=== PATIENT | male | born 1950 | race Caucasian/White ===

== ENCOUNTER 2017-03-05 08:44 | Inpatient (IN) | payer MEDICARE ==
[~2017-03-05] VITALS: Ht 188 cm; Wt 100.0 kg
[2017-03-05] VITALS (8 sets, daily range): BP systolic 125–197; BP diastolic 69–98; PULSE 70–90; RESP 12–20; TEMP 96.5–98.8; O2SAT 95–100
[~2017-03-05 08:44] MED LIST: ALLO300T2 PO; AMIO200T PO; DILT0.05 PO; DOXA1TAB35 PO; FISH100020; HYDR-3801 PO; LEVO.05 PO; LIPI10TA PO; METO100T9 PO
--- NOTE | 2017-03-05 10:39 | PD ---
HPI Chief Complaint: Improvement Engineer Problem Time Seen by Provider: 09:57 Travel History International Travel<30 days: No Contact w/Intl Traveler<30days: No Traveled to known affect area: No History of Present Illness HPI 66 years old male complains of low abdominal pain. Patient has history of end- stage renal disease on peritoneal dialysis for the past 15 years. Patient had infected peritoneal dialysis catheter in November of this year. Patient was seen by Dr. Mascorro and had catheter removal. Patient was put on antibiotic. Patient had catheter replacement subsequently in January of this year. Patient started having low abdominal pain, redness swelling ulcerate drainage lesions on the lateral abdomen for the past 10 days. Patient was seen by personal physician and given IV Fortaz and vancomycin on February 19. Patient was put on oral rifampin since then. Patient started having pussy discharge from the area for the past 2 days. Patient was seen by Dr. Roosevelt Mejia his software product specialist and was advised to the ED for evaluation and admission. Patient denies any headache. Patient denies any chest pain or shortness of breath. Patient states that he has burning pain localized around the lower abdomen area. Patient denies any pain radiation. Patient denies any back pain. Patient denies any fever chills. Patient still making urine. Patient was on temporary hemodialysis for a short time a few months ago. PFSH Past Medical History Arthritis: Yes Blood Disorders: No Cancer: No Cardiovascular Problems: Yes High Cholesterol: Yes Cerebrovascular Accident: Yes Diabetes: No Endocrine: No Genitourinary: No Hypertension: Yes Immune Disorder: No Neurologic: Yes (cva-2012) Psychiatric: No Respiratory: No Immunizations Current: Yes Renal Failure: Yes Thyroid Disease: Yes Past Surgical History Abdominal Surgery: Yes (tenkoff catheter insertion) Cardiac Surgery: Yes (pacer insertion 2013) Cholecystectomy: Yes Pacemaker: Yes (biotronic) Tonsillectomy: Yes Social History Alcohol Use: No Tobacco Use: No Substance Use: No Allergies-Medications (Allergen,Severity, Reaction): Coded Allergies: No Known Allergies (Verified , 03/05/17) Reported Meds & Prescriptions Reported Meds & Active Scripts Active Reported Diltiazem ER 24 HR 180 Mg Forest 180 Mg PO DAILY Doxazosin (Doxazosin Mesylate) 2 Mg Tab 2 Mg PO DAILY Amiodarone (Amiodarone HCl) 200 Mg Tab 200 Mg PO DAILY Synthroid (Levothyroxine Sodium) 50 Mcg Tab 50 Mcg PO DAILY Metoprolol Succinate ER 24 HR (Metoprolol Succinate) 100 Mg Tab 100 Mg PO BID Hydralazine (Hydralazine HCl) 100 Mg Tab 100 Mg PO BID Take with meals Fish Oil 1000 mg ([place]-3 Fatty Acids) 1 Cap Cap BID Lipitor (Atorvastatin Calcium) 10 Mg Tab 10 Mg PO HS Allopurinol 300 Mg Tab 300 Mg PO DAILY Review of Systems General / Constitutional: No: Fever Eyes: No: Visual changes HENT: No: Headaches Cardiovascular: No: Chest Pain or Discomfort Respiratory: No: Shortness of Breath Gastrointestinal: Positive: Abdominal Pain Genitourinary: No: Dysuria Musculoskeletal: No: Pain Skin: No Rash Neurologic: No: Weakness Psychiatric: No: Depression Endocrine: No: Polydipsia Hematologic/Lymphatic: No: Easy Bruising Physical Exam Narrative GENERAL: Well-nourished, well-developed patient. SKIN: Focused skin assessment warm/dry. HEAD: Normocephalic. EYES: No scleral icterus. No injection or drainage. NECK: Supple, trachea midline. No JVD or lymphadenopathy. CARDIOVASCULAR: Regular rate and rhythm without murmurs, gallops, or rubs. RESPIRATORY: Breath sounds equal bilaterally. No accessory muscle use. GASTROINTESTINAL: Abdomen soft, nondistended. Mild tenderness on palpation lower abdomen. Peritoneal catheter in place. MUSCULOSKELETAL: No cyanosis, or edema. BACK: Nontender without obvious deformity. No CVA tenderness. Patient has several ulcer lesions lower abdomen wall area with redness swelling tenderness associate with that. Mild discharge noted. Data Data Last Documented VS Vital Signs Date Time Temp Pulse Resp B/P (MAP) Pulse Ox O2 Delivery O2 Flow Rate FiO2 03/05/17 09:58 16 98 Room Air 03/05/17 08:46 98.8 70 179/81 (113) Orders Orders Electrocardiogram (03/05/17 10:26) Complete Blood Count With Diff (03/05/17 10:26) Comprehensive Metabolic Panel (03/05/17 10:26) Prothrombin Time / Inr (Pt) (03/05/17 10:26) Act Partial Throm Time (Ptt) (03/05/17 10:26) Blood Culture (03/05/17 10:26) Magnesium (Mg) (03/05/17 10:26) Thyroid Stimulating Hormone (03/05/17 10:26) Phosphorus (Po4) (03/05/17 10:26) Chest, Single Ap (03/05/17 10:26) Iv Access Insert/Monitor (03/05/17 10:26) Ecg Monitoring (03/05/17 10:26) Oximetry (03/05/17 10:26) MDM Medical Decision Making Medical Screen Exam Complete: Yes Emergency Medical Condition: Yes Differential Diagnosis Differential diagnosis including cellulitis, infected peritoneal catheter, peritonitis. Narrative Course 66 years old male with infected peritoneal dialysis catheter. Patient has history of end-stage renal disease on dialysis. Jon Sanchez MD Mar 05, 2017 10:39
[2017-03-05] MEDS ORDERED: DILT1TAB4 PO (10:55)
[2017-03-05] MEDS ORDERED: HYDR-3800 PO (10:55)
[2017-03-05 11:21] LABS: AUTOMATED NEUTROPHIL # 5.8 TH/MM3 (1.8-7.7); BASOPHIL # 0.1 TH/MM3 (0-0.2); BASOPHIL % 0.7 % (0.0-2.0); EOSINOPHIL # 0.2 TH/MM3 (0-0.4); EOSINOPHIL % 2.1 % (0.0-4.0); HEMATOCRIT 36.7 % (39.0-51.0); HEMO FLAGS DIFF FINAL; LYMPH % 11.3 % (9.0-44.0); LYMPHOCYTE # 0.9 TH/MM3 (1.0-4.8); MEAN CELL VOLUME 94.6 FL (80.0-100.0); MEAN CORPUSCULAR HEMOGLOBIN 31.8 PG (27.0-34.0); MEAN CORPUSCULAR HGB CONC 33.6 % (32.0-36.0); MONO % 8.8 % (0.0-8.0); NEUT % 77.1 % (16.0-70.0); PLATELET COUNT 171 TH/MM3 (150-450); RED BLOOD COUNT 3.88 MIL/MM3 (4.50-5.90); RED CELL DISTRIBUTION WIDTH 14.8 % (11.6-17.2); WHITE BLOOD COUNT 7.5 TH/MM3 (4.0-11.0)
[2017-03-05 11:28] LABS: APTT (PATIENT) 28.8 SEC (24.3-30.1); INTERNATIONAL NORMALIZED RATIO 1.1 RATIO; PROTHROMBIN TIME - PATIENT 11.9 SEC (9.8-11.6)
--- NOTE | 2017-03-05 11:36 | RADRPT ---
EXAM DATE/TIME: 03/05/2017 10:50 [facility] COMPARISON: No previous studies available for comparison. INDICATIONS : Short of breath. Patient states no chest complaints. Patient states his PEG tube is infected. MEDICAL HISTORY : ESRD,CVA,HTN, left sided weakness. SURGICAL HISTORY : . Peg tube . ENCOUNTER: Initial ACUITY: 1 day PAIN SCORE: 0/10 LOCATION: Bilateral chest FINDINGS: There is a dual-lead pacemaker in place. Lungs are clear. Cardiomediastinal contours are within carine l limits. Bony thorax is intact. CONCLUSION: 1. No acute cardiopulmonary disease. Jc Moyer MD on March 05, 2017 at 11:34 Board Certified Radiologist. This report was verified electronically.
[2017-03-05 11:45] LABS: ANION GAP 9 MEQ/L (5-15); AST (GOT) 95 U/L (15-37); BICARBONATE 26.3 MEQ/L (21.0-32.0); BLOOD UREA NITROGEN 57 MG/DL (7-18); CHLORIDE 105 MEQ/L (98-107); GLOMERULAR FILTRATION RATE 8 ML/MIN (>89); MAGNESIUM 2.5 MG/DL (1.5-2.5); POTASSIUM 3.6 MEQ/L (3.5-5.1); SODIUM (NA) 140 MEQ/L (136-145)
[2017-03-05 11:56] LABS: ALKALINE PHOSPHATASE 127 U/L (45-117); ALT (GPT) 169 U/L (12-78); TOTAL BILIRUBIN ADULT 0.7 MG/DL (0.2-1.0)
[2017-03-05] MEDS ORDERED: SODIUM CHLOR 0.9% 1000 ML INJ 1,000 ML IV PRN (12:24)
[2017-03-05] MEDS ORDERED: ACETAMINOPHEN 325 MG TAB PO PRN ×3 (12:30→14:00)
[2017-03-05] MEDS ORDERED: ALBUMIN HUMAN 25% 25 GM/100 ML BAGP IV PRN (12:30)
[2017-03-05] MEDS ORDERED: GELATIN 12 MM/7 MM FOAM TOP PRN (12:30)
[2017-03-05] MEDS ORDERED: GENTAMICIN SULFATE (DIALYSIS USE ONLY) 20 MG/2 ML VIAL OTHER PRN (12:30)
[2017-03-05] MEDS ORDERED: HEPARIN SODIUM - IV 10,000 UNITS/10 ML VIAL IV FLUSH PRN (12:30)
[2017-03-05] MEDS ORDERED: MANNITOL 12.5 GM/50 ML VIAL IV PRN (12:30)
[2017-03-05] MEDS ORDERED: diphenhydrAMINE HCL 25 MG CAP PO PRN (12:30)
[2017-03-05] MEDS ORDERED: NITROGLYCERIN 0.4 MG SL 25 TABS/BTL SL PRN (12:30)
[2017-03-05] MEDS ORDERED: cloNIDine HCL 0.1 MG TAB PO PRN (12:30)
[2017-03-05] MEDS ORDERED: SODIUM CHLORIDE 0.9% FLUSH 10 ML FLUSH IV FLUSH PRN ×2 (12:30→14:00)
[2017-03-05] MEDS ORDERED: ONDANSETRON HCL 4 MG/2 ML VIAL IV PUSH PRN (12:30)
[2017-03-05] MEDS ORDERED: SODIUM CHLOR 0.9% 1000 ML INJ 1,000 ML OTHER PRN ×2 (13:00)
--- NOTE | 2017-03-05 13:00 | EKG ---
Date Performed: 03/05/2017 Time Performed: 10:46:57 PTAGE: 66 years EKG: ELECTRONIC ATRIAL PACEMAKER ABNORMAL RHYTHM ECG PREVIOUS TRACING : 11/24/2016 08.34 No significant change from previous tracing noted. DOCTOR: Compa Bañuelos Interpretating Date/Time 03/05/2017 12:58:43
[2017-03-05] MEDS ORDERED: VANCOMYCIN INJ 1,000 MG in SODIUM CHLOR 0.9% 250 ML INJ 250 ML IV SCH (13:15)
[2017-03-05] MEDS ORDERED: VANCOMYCIN HCL 1000 MG VIAL ONE (13:28)
[2017-03-05] MEDS ORDERED: MIDAZOLAM HCL 5 MG/5 ML VIAL ONE (13:40)
[2017-03-05] MEDS ORDERED: NALOXONE HCL 0.4 MG/ML AMP IV PUSH PRN (14:00)
[2017-03-05] MEDS ORDERED: ONDANSETRON HCL 4 MG/2 ML VIAL IVP PRN (14:00)
[2017-03-05] MEDS: ceFAZolin 2 GM PREMIX 50 ML IV SCH (14:15)
--- NOTE | 2017-03-05 14:18 | PD.RAD ---
Post Procedure Progress Note Pre Procedure Diagnosis: (1) Dialysis patient Post Procedure Diagnosis: (1) Dialysis patient Procedure Date: Mar 05, 2017 Supervising Radiologist: Judd Lizarraga Estimated blood loss: 5CC Anesthesia: Local, Conscious Sedation Plan of Activity Patient to Unit: Nursing Unit Patient Condition: Fair Additional Comments: Perm Cath placed via the right IJ Catheter in good position OK for use. Full dictated report to follow. See PACS Report for procedural detail/treatment Judd Lizarraga MD Mar 05, 2017 14:18
[2017-03-05] MEDS ORDERED: SODIUM CHLORIDE 0.9% FLUSH 10 ML FLUSH IVF PRN (14:30)
[2017-03-05] MEDS ORDERED: HEPARIN SODIUM - IV 2,000 UNITS/2 ML VIAL IV FLUSH PRN (14:30)
--- NOTE | 2017-03-05 15:25 | RADRPT ---
EXAM DATE/TIME: 03/05/2017 00:00 [facility] COMPARISON: PERM CV CATH PLCMT W US RIGHT, November 24, 2016, 9:53. INDICATIONS : Patient presents with an infected parietoneal dialysis catheter in need of permcath placement for uri lysis. MEDICAL HISTORY : ESRD HTN CVA Left sided weakness SURGICAL HISTORY : Pacemaker Christelle Tonsillectomy Tenkoff catheter placement ENCOUNTER: Subsequent ACUITY: 4-6 months PAIN SCORE: 0/10 LOCATION: N/A FLUORO TIME: 0.9 minutes IMAGE SERIES: SEDATION TIME: 30 minutes ACCESS: Right internal jugular vein SEDATION: 1.) 2 mg midazolam (Versed) IV 2.) 100 mcg fentanyl (Sublimaze) IV Prophylactic antibiotics were administered with appropriate pre-procedure timing. Vancomycin within 2 hours of procedure, Ancef (or alternative) within 1 hour of procedure. DEVICE: 1. 15 Italian dual lumen 23 cm Colmenares II Plus catheter TECH NOTE: No image was stored.CRISTAL TAVAREZ MR#:[id number]/ Exam Dt/Desc: March 05, 2017PERM CV CATH PLCMT W US RIGHT PROCEDURE : 1. Ultrasound-guided venipuncture. 2. PermaCath placement. 3. Conscious sedation with continuous EKG and oximetry monitoring. The risks, benefits and alternatives to the procedure were explained and verbal and written consent w as obtained. The site was prepped in sterile fashion. Full sterile technique was used, including ca p, mask, sterile gloves and gown and a large sterile sheet. Hand hygiene and 2% chlorhexidine and/or betadine/alcohol prep was utilized per protocol for cutaneous antisepsis. Sterile gel and sterile p robe cover were utilized for ultrasound guidance. The skin and subcutaneous tissues were infiltrated with local anesthetic solution. With ultrasound and fluoroscopic guidance a dermatotomy was created over the right internal jugular v ein. A micropuncture set was used to access the targeted vein and serial dilatation was performed to accept the prescribed length catheter. A subcutaneous tunnel was created in a retrograde fashion th e catheter was pulled through the tunnel. The catheter was flushed and assembled and locked with hep daniel. The catheter was sutured in place. Conscious sedation was performed with the prescribed dosages and duration as above in the presence of an independent trained radiology nurse to assist in the monitoring of the patient. EKG and oximetry remained stable throughout the procedure. The patient tolerated the procedure well and there were n o complications. The patient was sent to post anesthesia recovery in stable condition. CONCLUSION: Uncomplicated PermaCath placement as above. Judd Lizarraga MD on March 05, 2017 at 15:24 Board Certified Radiologist. This report was verified electronically.
--- NOTE | 2017-03-05 15:35 | HHI.HP ---
[facility] Physician Abby Winter MD Admission Diagnosis infected peritoneal catheter. History of end-stage renal disease on Diagnoses: (1) Peritoneal dialysis catheter infection Chief Complaint: irritation and drainage at PD site Travel History International Travel<30 Days: No Contact w/Intl Traveler <30 Da: No Traveled to Known Affected Are: No History of Present Illness 66-year-old male with a history of end-stage renal disease on peritoneal dialysis who back in 11/24/16 at his PD catheter removed and replaced by vascular surgery secondary to infection was sent to the ED by his customer marketing manager for evaluation of peritoneal dialysis catheter infection. Patient states, over the past 10 days he's been having abdominal irritation and noticed redness around the PD site He was seen by his PCP will prescribe IV Fortaz and vancomycin on 02/19/17 as well as oral rifampin. However over the past 2 days patient noticed drainage at the PD site along with some erythema. He denies any febrile episode. Review of Systems Except as stated in HPI: all other systems reviewed are Neg Past Family Social History Past Medical History Arthritis: Yes Cardiovascular Problems: Yes High Cholesterol: Yes Cerebrovascular Accident: Yes Hypertension: Yes Immunizations Current: Yes Renal Failure: Yes Thyroid Disease: Yes Past Surgical History Abdominal Surgery: Yes (tenkoff catheter insertion) Cardiac Surgery: Yes (pacer insertion 2013) Cholecystectomy: Yes Pacemaker: Yes (biotronic) Tonsillectomy: Yes Reported Medications Diltiazem ER 24 HR 180 Mg Forest 180 Mg PO DAILY Doxazosin (Doxazosin Mesylate) 2 Mg Tab 2 Mg PO DAILY Amiodarone (Amiodarone HCl) 200 Mg Tab 200 Mg PO DAILY Synthroid (Levothyroxine Sodium) 50 Mcg Tab 50 Mcg PO DAILY Metoprolol Succinate ER 24 HR (Metoprolol Succinate) 100 Mg Tab 100 Mg PO BID Hydralazine (Hydralazine HCl) 100 Mg Tab 100 Mg PO BID Take with meals Fish Oil 1000 mg ([place]-3 Fatty Acids) 1 Cap Cap BID Lipitor (Atorvastatin Calcium) 10 Mg Tab 10 Mg PO HS Allopurinol 300 Mg Tab 300 Mg PO DAILY Allergies: Coded Allergies: No Known Allergies (Verified , 03/05/17) Social History Alcohol Use: No Tobacco Use: No Substance Use: No Physical Exam Vital Signs Vital Signs Date Time Temp Pulse Resp B/P (MAP) Pulse Ox O2 Delivery O2 Flow Rate FiO2 03/05/17 14:52 70 12 196/98 (130) 99 Room Air 03/05/17 11:30 70 15 197/91 (126) 100 Room Air 03/05/17 10:37 96 Room Air 03/05/17 10:36 71 20 192/94 (126) 96 Room Air 03/05/17 10:00 72 16 167/82 (110) 99 Room Air 03/05/17 09:58 16 98 Room Air 03/05/17 08:46 98.8 70 13 179/81 (113) 95 Physical Exam GENERAL: This is a well-nourished, well-developed patient, in no apparent distress. SKIN: No rashes, ecchymoses or lesions. Cool and dry. drainage at PD site surrounding by erythema HEAD: Atraumatic. Normocephalic. No temporal or scalp tenderness. EYES: Pupils equal round and reactive. Extraocular motions intact. No scleral icterus. No injection or drainage. ENT: Nose without bleeding, purulent drainage or septal hematoma. Throat without erythema, tonsillar hypertrophy or exudate. Uvula midline. Airway patent. NECK: Trachea midline. No JVD or lymphadenopathy. Supple, nontender, no meningeal signs. CARDIOVASCULAR: Regular rate and rhythm without murmurs, gallops, or rubs. RESPIRATORY: Clear to auscultation. Breath sounds equal bilaterally. No wheezes , rales, or rhonchi. GASTROINTESTINAL: Abdomen soft, non-tender, nondistended. No hepato-splenomegaly , or palpable masses. No guarding. MUSCULOSKELETAL: Extremities without clubbing, cyanosis, or edema. No joint tenderness, effusion, or edema noted. No calf tenderness. Negative Homans sign bilaterally. NEUROLOGICAL: Awake and alert. Cranial nerves II through XII intact. Motor and sensory grossly within normal limits. Laboratory Laboratory Tests Test 03/05/17 10:25 White Blood Count 7.5 Red Blood Count 3.88 Hemoglobin 12.3 Hematocrit 36.7 Mean Corpuscular Volume 94.6 Mean Corpuscular Hemoglobin 31.8 Mean Corpuscular Hemoglobin Concent 33.6 Red Cell Distribution Width 14.8 Platelet Count 171 Mean Platelet Volume 9.0 Neutrophils (%) (Auto) 77.1 Lymphocytes (%) (Auto) 11.3 Monocytes (%) (Auto) 8.8 Eosinophils (%) (Auto) 2.1 Basophils (%) (Auto) 0.7 Neutrophils # (Auto) 5.8 Lymphocytes # (Auto) 0.9 Monocytes # (Auto) 0.7 Eosinophils # (Auto) 0.2 Basophils # (Auto) 0.1 CBC Comment DIFF FINAL Differential Comment Prothrombin Time 11.9 Prothromb Time International Ratio 1.1 Activated Partial Thromboplast Time 28.8 Blood Urea Nitrogen 57 Creatinine 6.83 Random Glucose 112 Total Protein 6.4 Albumin 2.6 Calcium Level 7.9 Phosphorus Level 4.1 Magnesium Level 2.5 Alkaline Phosphatase 127 Aspartate Amino Transf (AST/SGOT) 95 Alanine Aminotransferase (ALT/SGPT) 169 Total Bilirubin 0.7 Sodium Level 140 Potassium Level 3.6 Chloride Level 105 Carbon Dioxide Level 26.3 Anion Gap 9 Estimat Glomerular Filtration Rate 8 Thyroid Stimulating Hormone 3rd Gen 5.020 Date/Time Source Procedure Growth Status 03/05/17 10:50 Blood Peripheral Aerobic Blood Culture Pending Received 03/05/17 10:50 Blood Peripheral Anaerobic Blood Culture Pending Received 03/05/17 12:40 Wound Abdomen Acid Fast Stain Pending Received 03/05/17 12:40 Wound Abdomen Mycobacterial Culture Pending Received Result Diagram: 03/05/17 1025 03/05/17 1025 Imaging Last Impressions Chest X-Ray 03/05/17 1026 Signed Impressions: Service Date/Time: Sunday, March 05, 2017 10:50 - CONCLUSION: 1. No acute cardiopulmonary disease. Jc Moyer MD Catheter Placement X-Ray 03/05/17 0000 Signed Impressions: Service Date/Time: Sunday, March 05, 2017 00:00 - CONCLUSION: Uncomplicated PermaCath placement as above. MD Mirna Guadarrama VTE Risk Assessment Zenai VTE Risk Assessment: Mod/High Risk (score >= 2) Caprini Risk Assessment Model Point Value = 1 Point Value = 2 Point Value = 3 Point Value = 5 Age 41-60 Minor surgery BMI > 25 kg/m2 Swollen legs Varicose veins or History of unexplained or recurrent spontaneous Oral contraceptives or hormone replacement Sepsis (< 1 month) Serious lung disease, including pneumonia (< 1 month) Abnormal pulmonary function Acute myocardial infarction Congestive heart failure (< 1 month) History of inflammatory bowel disease Medical patient at bed rest Age 61-74 Arthroscopic surgery Major open surgery (> 45 min) Laparoscopic surgery (> 45 min) Malignancy Confined to bed (> 72 hours) Immobilizing plaster cast Central venous access Age >= 75 History of VTE Family history of VTE Factor V Leiden Prothrombin [id number] Lupus anticoagulant Anticardiolipin antibodies Elevated serum homocysteine Heparin-induced thrombocytopenia Other congenital or acquired thrombophilia Stroke (< 1 month) Elective arthroplasty Hip, pelvis, or leg fracture Acute spinal cord injury (< 1 month) Prophylaxis Regimen Total Risk Factor Score Risk Level Prophylaxis Regimen 0-1 Low Early ambulation 2 Moderate Order ONE of the following: *Sequential Compression Device (SCD) *Heparin 5000 units SQ BID 3-4 Higher Order ONE of the following medications: *Heparin 5000 units SQ TID *Enoxaparin/Lovenox 40 mg SQ daily (WT < 150 kg, CrCl > 30 mL/min) *Enoxaparin/Lovenox 30 mg SQ daily (WT < 150 kg, CrCl > 10-29 mL/min) *Enoxaparin/Lovenox 30 mg SQ BID (WT < 150 kg, CrCl > 30 mL/min) AND/OR *Sequential Compression Device (SCD) 5 or more Highest Order ONE of the following medications: *Heparin 5000 units SQ TID (Preferred with Epidurals) *Enoxaparin/Lovenox 40 mg SQ daily (WT < 150 kg, CrCl > 30 mL/min) *Enoxaparin/Lovenox 30 mg SQ daily (WT < 150 kg, CrCl > 10-29 mL/min) *Enoxaparin/Lovenox 30 mg SQ BID (WT < 150 kg, CrCl > 30 mL/min) AND *Sequential Compression Device (SCD) Assessment and Plan Problem List: (1) Peritoneal dialysis catheter infection ICD Code: T85.71XA - Infection and inflammatory reaction due to peritoneal dialysis catheter, initial encounter Assessment and Plan 66-year-old man with Peritoneal dialysis catheter infection Recurrent aspiration with prior infected PD catheter which was replaced 11/24 Interventional radiology consulted and patient is status post placement of banneracat Nephrology consultation pending Antibiotic per Nephrology pending culture reports End stage renal disease on dialysis Management per nephrology Hypertension Labile BP Resume outpatient medications Start hydralazine when necessary History of CAD, hypertension, hyperlipidemia and other chronic medical conditions Resume outpatient medications Code Status Full code Discussed Condition With Patient, ED physician Physician Certification 2 Midnight Certification Type: Continued Stay Order for Inpatient Services The services are ordered in accordance with Medicare regulations or non- Medicare payer requirements, as applicable. In the case of services not specified as inpatient-only, they are appropriately provided as inpatient services in accordance with the 2-midnight benchmark. Estimated LOS (days): 2 days is the estimated time the patient will need to remain in the hospital, assuming treatment plan goals are met and no additional complications. Post-Hospital Plan: Not yet determined Mauricio Ahn MD Mar 05, 2017 15:34
[2017-03-05] MEDS ORDERED: hydrALAZINE HCL 25 MG TAB PO PRN (15:45)
[2017-03-05] MEDS ORDERED: IMIPENEM/CILASTATIN INJ 500 MG VIAL IV ONE (16:15)
--- NOTE | 2017-03-05 16:32 | PD.CONS ---
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 He had a infection in the past 6 months that required PD catheter removal and replacement. He presents with drainage at exit site with what looks like an abscess on the lower abdomen. He was referred for treatment. He was being treated with IP vancomycin and Fortaz, and recently started oral rifampin. today he is afebrile, no leukocytosis. The culture from the PD clinic shows + AFB. He has no acute electrolyte disorders. We had a PermCath placed today in anticipation of starting hemodialysis. His is present, he is a full code. (Jeaneth Roth) Review of Systems Constitutional: COMPLAINS OF: Fatigue Integumentary: COMPLAINS OF: Abnormal pigmentation (Jeaneth Roth) Past Family Social History Allergies: Coded Allergies: No Known Allergies (Verified , 03/05/17) Past Medical History ESRD 2' to IgA nephropathy HTN CVA A fib anemia metabolic bone disorder gout Past Surgical History PD catheter and removal PD catheter replacement pacemaker Reported Medications Diltiazem ER 24 HR 180 Mg [place] 180 Mg PO DAILY Doxazosin (Doxazosin Mesylate) 2 Mg Tab 2 Mg PO DAILY Amiodarone (Amiodarone HCl) 200 Mg Tab 200 Mg PO DAILY Synthroid (Levothyroxine Sodium) 50 Mcg Tab 50 Mcg PO DAILY Metoprolol Succinate ER 24 HR (Metoprolol Succinate) 100 Mg Tab 100 Mg PO BID Hydralazine (Hydralazine HCl) 100 Mg Tab 100 Mg PO BID Take with meals Fish Oil 1000 mg ([place]-3 Fatty Acids) 1 Cap Cap BID Lipitor (Atorvastatin Calcium) 10 Mg Tab 10 Mg PO HS Allopurinol 300 Mg Tab 300 Mg PO DAILY Active Ordered Medications Current Medications Medications (Trade) Dose Ordered Sig/Xander Route Start Time Stop Time Status Last Admin Sodium Chloride 1,000 ml @ 0 mls/hr Q0M PRN OTHER 03/05/17 13:00 (Heparin Inj) 8,000 units UNSCH PRN IV FLUSH 03/05/17 12:30 Sodium Chloride 1,000 ml @ 200 mls/hr Q5H PRN IV 03/05/17 12:24 Sodium Chloride 1,000 ml @ 0 mls/hr Q0M PRN OTHER 03/05/17 13:00 (Mannitol Inj) 12.5 gm UNSCH PRN IV 03/05/17 12:30 (Albumin 25% Inj) 25 gm UNSCH PRN IV 03/05/17 12:30 (NS Flush) 5 ml UNSCH PRN IV FLUSH 03/05/17 12:30 (Heparin Inj) UNSCH PRN .XX 03/05/17 12:30 (Gentamicin (Dialysis) Inj) 20 mg UNSCH PRN OTHER 03/05/17 12:30 (Zofran Inj) 4 mg UNSCH PRN IV PUSH 03/05/17 12:30 (Tylenol) 650 mg UNSCH PRN PO 03/05/17 12:30 (Benadryl) 25 mg UNSCH PRN PO 03/05/17 12:30 (Nitrostat Sl) 0.4 mg UNSCH PRN SL 03/05/17 12:30 (Catapres) 0.1 mg UNSCH PRN PO 03/05/17 12:30 03/05/17 15:08 (Gelfoam 12 Mm/7 Mm Top) 1 foam UNSCH PRN TOP 03/05/17 12:30 Vancomycin HCl 1000 mg/Sodium Chloride 250 ml @ 250 mls/hr CLOTH SHRINKING TESTER IV 03/05/17 13:15 03/08/17 13:14 Cefazolin Sodium/ Dextrose 50 ml @ 100 mls/hr CLOTH SHRINKING TESTER IV 03/05/17 13:15 03/08/17 13:14 03/05/17 14:15 (NS Flush) 2 ml UNSCH PRN IV FLUSH 03/05/17 14:00 (NS Flush) 2 ml BID IV FLUSH 03/05/17 21:00 (Tylenol) 650 mg Q4H PRN PO 03/05/17 14:00 (Zofran Inj) 4 mg Q6H PRN IVP 03/05/17 14:00 (Restoril) 15 mg HS PRN PO 03/05/17 14:00 (Tylenol) 650 mg Q6H PRN PO 03/05/17 14:00 (Narcan Inj) 0.4 mg UNSCH PRN IV PUSH 03/05/17 14:00 (NS Flush) UNSCH PRN IVF 03/05/17 14:30 (Heparin Inj) UNSCH PRN IV FLUSH 03/05/17 14:30 (Zyloprim) 300 mg DAILY PO 03/06/17 09:00 UNV (Lipitor) 10 mg HS PO 03/05/17 21:00 UNV (Cardizem Cd) 240 mg DAILY PO 03/06/17 09:00 UNV (Cardura) 2 mg DAILY PO 03/06/17 09:00 UNV (Apresoline) 50 mg BID PO 03/05/17 21:00 UNV (Synthroid) 50 mcg DAILY PO 03/06/17 09:00 UNV Non-Formulary Medication 100 mg BID PO 03/05/17 21:00 UNV (Apresoline) 25 mg Q8HR PRN PO 03/05/17 15:45 UNV Family History No hx of renal impairment Social History No hx of smoking Ambulatory Full code (Jeaneth Roth) Physical Exam Vital Signs Vital Signs Date Time Temp Pulse Resp B/P (MAP) Pulse Ox O2 Delivery O2 Flow Rate FiO2 03/05/17 15:20 03/05/17 14:52 70 12 196/98 (130) 99 Room Air 03/05/17 11:30 70 15 197/91 (126) 100 Room Air 03/05/17 10:37 96 Room Air 03/05/17 10:36 71 20 192/94 (126) 96 Room Air 03/05/17 10:00 72 16 167/82 (110) 99 Room Air 03/05/17 09:58 16 98 Room Air 03/05/17 08:46 98.8 70 13 179/81 (113) 95 Physical Exam This is an elderly male awake,alert, oriented x 3 lungs clear S1/S2, irreg irreg, no murmurs; pacer left chest abdomen round; right side at PD exit site yellow thick drainage lower abdomen approximately 3 inch area of inflammation, raised, appears to have abscess tunneled under skin no edema to extremities PermCath right chest Laboratory Laboratory Tests Test 03/05/17 10:25 White Blood Count 7.5 Red Blood Count 3.88 Hemoglobin 12.3 Hematocrit 36.7 Mean Corpuscular Volume 94.6 Mean Corpuscular Hemoglobin 31.8 Mean Corpuscular Hemoglobin Concent 33.6 Red Cell Distribution Width 14.8 Platelet Count 171 Mean Platelet Volume 9.0 Neutrophils (%) (Auto) 77.1 Lymphocytes (%) (Auto) 11.3 Monocytes (%) (Auto) 8.8 Eosinophils (%) (Auto) 2.1 Basophils (%) (Auto) 0.7 Neutrophils # (Auto) 5.8 Lymphocytes # (Auto) 0.9 Monocytes # (Auto) 0.7 Eosinophils # (Auto) 0.2 Basophils # (Auto) 0.1 CBC Comment DIFF FINAL Differential Comment Prothrombin Time 11.9 Prothromb Time International Ratio 1.1 Activated Partial Thromboplast Time 28.8 Blood Urea Nitrogen 57 Creatinine 6.83 Random Glucose 112 Total Protein 6.4 Albumin 2.6 Calcium Level 7.9 Phosphorus Level 4.1 Magnesium Level 2.5 Alkaline Phosphatase 127 Aspartate Amino Transf (AST/SGOT) 95 Alanine Aminotransferase (ALT/SGPT) 169 Total Bilirubin 0.7 Sodium Level 140 Potassium Level 3.6 Chloride Level 105 Carbon Dioxide Level 26.3 Anion Gap 9 Estimat Glomerular Filtration Rate 8 Thyroid Stimulating Hormone 3rd Gen 5.020 Date/Time Source Procedure Growth Status 03/05/17 10:50 Blood Peripheral Aerobic Blood Culture Pending Received 03/05/17 10:50 Blood Peripheral Anaerobic Blood Culture Pending Received 03/05/17 12:40 Wound Abdomen Acid Fast Stain Pending Received 03/05/17 12:40 Wound Abdomen Mycobacterial Culture Pending Received (Jeaneth Roth) Result Diagram: 03/05/17 1025 03/05/17 1025 Imaging Last Impressions Chest X-Ray 03/05/17 1026 Signed Impressions: Service Date/Time: Sunday, March 05, 2017 10:50 - CONCLUSION: 1. No acute cardiopulmonary disease. Jc Moyer MD Catheter Placement X-Ray 03/05/17 0000 Signed Impressions: Service Date/Time: Sunday, March 05, 2017 00:00 - CONCLUSION: Uncomplicated PermaCath placement as above. Judd Lizarraga MD (Jeaneth Roth) Assessment and Plan Problem List: (1) Peritoneal dialysis catheter infection ICD Codes: T85.71XA - Infection and inflammatory reaction due to peritoneal dialysis catheter, initial encounter Plan: We have consulted surgery for PD catheter removal also have consulted ID for their expert opinion he was given Ancef and vancomycin ordered Levaquin Q48h with one dose of Primaxin wound culture has been sent (2) ESRD (end stage renal disease) on dialysis ICD Codes: N18.6 - End stage renal disease; Z99.2 - Dependence on renal dialysis Plan: Due to infection we will have to convert to HD permcath placed 03/05 Start TTS HD, no indication for dialysis today intermittently follow electrolytes IVF not required avoid gadolinium; renally does antibiotics if appropriate (3) HTN (hypertension) ICD Codes: I10 - Essential (primary) hypertension Plan: monitor blood pressure resume home medications (4) Bone metabolism disorder ICD Codes: E88.9 - Metabolic disorder, unspecified; M90.80 - Osteopathy in diseases classified elsewhere, unspecified site Plan: check phosphorus level in AM start binders if needed (Jeaneth Roth) Problem List: (1) Peritoneal dialysis catheter infection ICD Codes: T85.71XA - Infection and inflammatory reaction due to peritoneal dialysis catheter, initial encounter Plan: We have consulted surgery for PD catheter removal also have consulted ID for their expert opinion he was given Ancef and vancomycin ordered Levaquin Q48h with one dose of Primaxin wound culture has been sent (2) ESRD (end stage renal disease) on dialysis ICD Codes: N18.6 - End stage renal disease; Z99.2 - Dependence on renal dialysis Plan: Due to infection we will have to convert to HD permcath placed 03/05 Start TTS HD, no indication for dialysis today intermittently follow electrolytes IVF not required avoid gadolinium; renally does antibiotics if appropriate (3) HTN (hypertension) ICD Codes: I10 - Essential (primary) hypertension Plan: monitor blood pressure resume home medications (4) Bone metabolism disorder ICD Codes: E88.9 - Metabolic disorder, unspecified; M90.80 - Osteopathy in diseases classified elsewhere, unspecified site Plan: check phosphorus level in AM start binders if needed Assessment and Plan patient was seen and examined. Agree with above assessment and plan. I personally called ID and surgery (Dr. Mayer and Dr. Pop). Dr. Pop will inform Dr. Bonilla. Dr. Mayer recommended Levaquin and Primaxin. Apparently, Primaxin will have to be ordered by ID. The patient appears to have tunnel infection, and an abdominal wall abscess. Plan is to have PD catheter removed, treat infection, drain the abscess. He will be on HD at least temporarily. (Deangelo Dsouza MD) Jeaneth Roth Mar 05, 2017 16:32 Deangelo Dsouza MD Mar 06, 2017 07:07
[2017-03-05] MEDS: LEVOFLOXACIN 500 MG PREMIX INJ 100 ML IV SCH (18:30)
[2017-03-05] MEDS: hydrALAZINE HCL 50 MG TAB PO SCH (20:39)
[2017-03-05] MEDS: SODIUM CHLORIDE 0.9% FLUSH 10 ML FLUSH IV FLUSH SCH (20:39)
[2017-03-05] MEDS: METOPROLOL SUCCINATE 50 MG EXTENDED RELEASE TAB PO SCH (20:39)
[2017-03-05] MEDS: ATORVASTATIN 10 MG TAB PO SCH (20:39)
[2017-03-05] MEDS ORDERED: NON-FORMULARY DRUG (Metoprolol Succinate ER 24 HR 100 MG) PO SCH (21:00)
--- NOTE | 2017-03-05 21:10 | PD.PN.STU ---
Subjective Remarks 66 yo male with end stage renal disease consulted for infected peritoneal dialysis catheter. 10 days previous he began to notice, as he describes, a "boil " developing below his insertion site of his catheter. He notes it was just like the last PD catheter that was infected years back. This PD was placed in january after a subsequent infection of his previous PD that was placed in 2010. He presented to Dr. Mejia at the dialysis clinic and was admitted. He denies fever, abdominal pain, nausea/vomiting. He has normal bowel and bladder habits. Past surgical hx: left sided PD catheter placement 2010 and removal (unknown date) right sided PD catheter placement jan 2017 cholecystectomy (approximate time in 2001) Pacemaker placement Objective Vitals Vital Signs Date Time Temp Pulse Resp B/P (MAP) Pulse Ox O2 Delivery O2 Flow Rate FiO2 03/05/17 16:00 97.8 90 18 125/69 (87) 95 03/05/17 15:20 03/05/17 14:52 70 12 196/98 (130) 99 Room Air 03/05/17 11:30 70 15 197/91 (126) 100 Room Air 03/05/17 10:37 96 Room Air 03/05/17 10:36 71 20 192/94 (126) 96 Room Air 03/05/17 10:00 72 16 167/82 (110) 99 Room Air 03/05/17 09:58 16 98 Room Air 03/05/17 08:46 98.8 70 13 179/81 (113) 95 I/O 03/04/17 03/04/17 03/04/17 03/05/17 03/05/17 03/05/17 07:00 15:00 23:00 07:00 15:00 23:00 Intake Total 50 ml 480 ml Balance 50 ml 480 ml Intake Oral 480 ml IV Total 50 ml GENERAL: Well-nourished, well-developed patient.very pleasant and able to communicate well. SKIN: Warm and dry. HEAD: Normocephalic. EYES: No scleral icterus. No injection or drainage. CARDIOVASCULAR: Regular rate and rhythm without murmurs, gallops, or rubs. RESPIRATORY: Breath sounds equal bilaterally. No accessory muscle use. GASTROINTESTINAL: Abdomen soft, nondistended; approx 3 cm pus draining and erythematous open wound with raised edges below the insertion site of PD catheter, insertion site of catheter is erythematous and painful to light touch. EXTREMITIES: No cyanosis, or edema. NEUROLOGICAL: Awake, alert. left sided weakness face and extremities. Result Diagram: 03/05/17 1025 03/05/17 1025 Imaging Last Impressions Chest X-Ray 03/05/17 1026 Signed Impressions: Service Date/Time: Sunday, March 05, 2017 10:50 - CONCLUSION: 1. No acute cardiopulmonary disease. Jc Moyer MD Catheter Placement X-Ray 03/05/17 0000 Signed Impressions: Service Date/Time: Sunday, March 05, 2017 00:00 - CONCLUSION: Uncomplicated PermaCath placement as above. Judd Lizarraga MD A/P Assessment and Plan 1. peritoneal dialysis catheter infection - to be removed surgically; patient last meal approximately 16:30 03/05/17 hold at least 8 hrs with plan for surgery 03/06 morning. given Ancef and vancomycin Levaquin Q48h with one dose of Primaxin wound culture has been sent 2. End stage renal disease - per nephrology care 3. hypertension - per hospitalist care Marguerite Sidhu M3 Mar 05, 2017 21:10
--- NOTE | 2017-03-05 21:59 | MB ---
cc: STANTON MORLEY MD DATE OF CONSULTATION 03/05/2017 REASON FOR CONSULTATION Infected peritoneal dialysis catheter. HISTORY OF PRESENT ILLNESS The patient is a 66-year-old male with a history of end-stage renal disease on peritoneal dialysis who had his peritoneal dialysis catheter removed and replaced on November 24 of this year. The patient had abdominal irritation and increased pain and redness around the peritoneal dialysis site. The patient was seen by his primary care physician who prescribed IV Fortaz and vancomycin as well as oral Rifampin. He has noticed some drainage at the peritoneal dialysis site along with some erythema. The patient has had a hemodialysis catheter placed by radiology today. PAST MEDICAL HISTORY 1. Arthritis, 2. Hypercholesterolemia, 3. Coronary artery disease, 4. Hypertension, 5. End-stage renal disease, 6. Hypothyroidism, 7. Pacemaker insertion 8. CVA with residual weakness. PAST SURGICAL HISTORY 1. Pacemaker placement, 2. Cholecystectomy, 3. Tonsillectomy. MEDICATIONS 1. Diltiazem ER 180 mg p.o. daily. 2. Doxazosin 2 mg p.o. daily. 3. Amiodarone 200 mg p.o. q. day. 4. Synthroid 50 mcg q. day. 5. Metoprolol 100 mg b.i.d. 6. Hydralazine 100 mg b.i.d. 7. Fish oil daily. 8. Lipitor 10 mg p.o. q.h.s. 9. Allopurinol 300 mg p.o. q. day. ALLERGIES No known allergies. SOCIAL HISTORY He does not drink, smoke or use other substances. The patient's renal disease is due to IgA nephropathy. PHYSICAL EXAMINATION GENERAL: A male in no acute distress. VITAL SIGNS: BP 125/69, pulse 90, respirations 18, temperature 97.8. HEENT: Sclerae anicteric. Pupils are reactive. NECK: Supple. CHEST: Clear to auscultation. CARDIAC: Regular rate and rhythm. There is a pacemaker on the left side of his chest with a well-healed pocket. ABDOMEN: Soft with tenderness located over the peritoneal insertion site and the tunnel exit site. There is purulent material at the exit site. Pulses are present. NEUROLOGIC: The patient has weakness on the left side in the arm and leg. LABORATORY DATA WBCs of 7.5, platelets are 171,000. Coags - INR is 1.1. Chemistries - BUN and creatinine elevated at 57 and 6.8, potassium is 3.6, sodium 140, magnesium 2.5, calcium 7.9, alkaline phosphatase is elevated at 127, ALT 169, AST 95, total bilirubin normal at 0.7. TSH is elevated at 5.02. ASSESSMENT Infected peritoneal dialysis catheter. The patient has been changed over to hemodialysis. He is just eaten and as he is not septic, myself or one of my partners will remove the catheter tomorrow. He is scheduled for surgery at the end of the morning. I have discussed risks of the procedure with the patient and his including but not limited to bleeding, infection, need for reoperation. He will likely have the wound left open and have a VAC dressing applied. MD DIANA Garg/ /9:06 PM /9:30 PM
[2017-03-06] MEDS: LEVOTHYROXINE SODIUM 50 MCG TAB PO SCH (05:28)
[2017-03-06 05:40] LABS: AUTOMATED NEUTROPHIL # 5.3 TH/MM3 (1.8-7.7); BASOPHIL # 0.1 TH/MM3 (0-0.2); BASOPHIL % 0.9 % (0.0-2.0); EOSINOPHIL # 0.2 TH/MM3 (0-0.4); EOSINOPHIL % 2.5 % (0.0-4.0); HEMATOCRIT 33.7 % (39.0-51.0); HEMO FLAGS DIFF FINAL; LYMPH % 13.4 % (9.0-44.0); MEAN CORPUSCULAR HEMOGLOBIN 31.8 PG (27.0-34.0); MEAN CORPUSCULAR HGB CONC 33.8 % (32.0-36.0); MONO % 10.1 % (0.0-8.0); NEUT % 73.1 % (16.0-70.0); PLATELET COUNT 160 TH/MM3 (150-450); RED BLOOD COUNT 3.59 MIL/MM3 (4.50-5.90); RED CELL DISTRIBUTION WIDTH 15.1 % (11.6-17.2); WHITE BLOOD COUNT 7.3 TH/MM3 (4.0-11.0)
[2017-03-06 05:56] LABS: ANION GAP 11 MEQ/L (5-15); AST (GOT) 85 U/L (15-37); BICARBONATE 23.7 MEQ/L (21.0-32.0); BLOOD UREA NITROGEN 57 MG/DL (7-18); CHLORIDE 107 MEQ/L (98-107); GLOMERULAR FILTRATION RATE 8 ML/MIN (>89); POTASSIUM 4.1 MEQ/L (3.5-5.1); SODIUM (NA) 142 MEQ/L (136-145)
[2017-03-06 05:59] LABS: ALKALINE PHOSPHATASE 97 U/L (45-117); ALT (GPT) 137 U/L (12-78); TOTAL BILIRUBIN ADULT 0.5 MG/DL (0.2-1.0)
[2017-03-06] MEDS ORDERED: LACTATED RINGER'S 1000 ML IV PRN (06:00)
[2017-03-06 08:00] VITALS: BP 184/92; PULSE 70; RESP 18; TEMP 95.9; O2SAT 96
[2017-03-06] MEDS: DILTIAZEM-CD 240 MG CAP ER PO SCH (08:44)
[2017-03-06] MEDS: DOXAZOSIN MESYLATE 2 MG TAB PO SCH (08:44)
[2017-03-06] MEDS: METOPROLOL SUCCINATE 50 MG EXTENDED RELEASE TAB PO SCH ×2 (08:44→19:38)
[2017-03-06] MEDS: hydrALAZINE HCL 50 MG TAB PO SCH ×2 (08:44→19:37)
[2017-03-06] MEDS ORDERED: ALLOPURINOL 300 MG TAB PO SCH (09:00)
[2017-03-06] MEDS: SODIUM CHLORIDE 0.9% FLUSH 10 ML FLUSH IV FLUSH SCH ×2 (09:16→19:38)
--- NOTE | 2017-03-06 11:07 | HHI.NPPN ---
Subjective Additional Remarks No acute complaints, seen on dialysis today. Plan for PD catheter removal after dialysis. Objective Data Data Vital Signs Date Time Temp Pulse Resp B/P (MAP) Pulse Ox O2 Delivery O2 Flow Rate FiO2 03/06/17 08:00 95.9 70 18 184/92 (122) 96 03/05/17 20:00 96.5 74 17 169/92 (117) 98 03/05/17 16:00 97.8 90 18 125/69 (87) 95 03/05/17 15:20 03/05/17 14:52 70 12 196/98 (130) 99 Room Air 03/05/17 11:30 70 15 197/91 (126) 100 Room Air -: 03/06/17 0440 03/06/17 0440 Microbiology 03/05/17 Acid Fast Stain, Received Pending 03/05/17 Mycobacterial Culture, Received Pending 03/05/17 Gram Stain - Final, Resulted 03/05/17 Wound Culture, Resulted Pending Physical Exam General Appearance: Well Developed, Well Nourished, No Acute Distress Eyes Eye Exam: Pupils Equal Throat Throat Exam: Oral Mucosa [place] & Moist Neck Neck Exam: Neck Supple Pulmonary Resp Exam: Clear Bilaterally Cardiology CV Exam: Regular, Normal Sinus Rhythm Gastrointestinal/Abdomen GI Exam: Soft, Non-Tender, Bowel Sounds Present Integumentary Skin Exam: Dry, Intact Extremeties Extremities Exam: No Edema Neurologic Neuro Exam: Alert, Awake, Oriented Assessment/Plan Problem List: (1) Peritoneal dialysis catheter infection ICD Codes: T85.71XA - Infection and inflammatory reaction due to peritoneal dialysis catheter, initial encounter Plan: Plan for PD catheter removal today. ID consulted - given ancef and vancomycin now. Levaquin Q48h with one dose of Primaxin Persistent +AFB wound culture has been sent (2) ESRD (end stage renal disease) on dialysis ICD Codes: N18.6 - End stage renal disease; Z99.2 - Dependence on renal dialysis Plan: Tunneled HD catheter placed yesterday. Seen on HD today, continue HD TTS avoid gadolinium; renally does antibiotics if appropriate Will need arrangements for outpatient HD. May evaluate for AV access inpatient or outpatient - unclear if he would be a candidate for retrying PD again. (3) HTN (hypertension) ICD Codes: I10 - Essential (primary) hypertension Plan: BP slightly elevated, HD today. Continue to monitor. (4) Bone metabolism disorder ICD Codes: E88.9 - Metabolic disorder, unspecified; M90.80 - Osteopathy in diseases classified elsewhere, unspecified site Plan: check phosphorus level in AM start binders if needed (5) Atrial fibrillation ICD Codes: I48.91 - Unspecified atrial fibrillation Plan: Recently stopped Amiodarone and increased on Cardizem with Dr. Cotto outpatient. HR 70s, continue to monitor. Judd Mejia MD Mar 06, 2017 11:06
[2017-03-06] MEDS: HEPARIN SODIUM - IV 10,000 UNITS/10 ML VIAL PRN (11:19)
--- NOTE | 2017-03-06 11:55 | PD.ID.CON ---
History of Present Illness Service ID Consult Requested By Dr Dsouza Reason for Consult nfected PD catheter, growing AFB Primary Care Physician Abby Winter MD Diagnoses: History of Present Illness 68 yo male wioth ESRD, PD cath had a infection in the past 6 months that required PD catheter removal and replacement He apparently once agin developped drainage at exit site He was started on treatment with IP vancomycin and Fortaz, and recently started oral rifampin. The culture from the PD clinic shows + AFB. He has no acute electrolyte disorders. Yesteraday he had a PermCath placed today and started on hemodialysis which he had today Clx done 10 days ago and grew AFB witnin 6 mos denies fever, chills, no abd pain For removal PD cath Review of Systems Except as stated in HPI: all other systems reviewed are Neg Past Family Social History Allergies: Coded Allergies: No Known Allergies (Verified , 03/05/17) Past Medical History ESRD 2' to IgA nephropathy HTN CVA A fib anemia metabolic bone disorder gout Past Surgical History PD catheter placement and removal PD catheter replacement pacemaker Active Ordered Medications Medications where reviewed in EMR Antibiotics Include: levaquine vancomycin Family History reviewed Non contributory Social History No hx of smoking, ETOH or drugs Full code Physical Exam Vital Signs Vital Signs Date Time Temp Pulse Resp B/P (MAP) Pulse Ox O2 Delivery O2 Flow Rate FiO2 03/06/17 08:00 95.9 70 18 184/92 (122) 96 03/05/17 20:00 96.5 74 17 169/92 (117) 98 03/05/17 16:00 97.8 90 18 125/69 (87) 95 03/05/17 15:20 03/05/17 14:52 70 12 196/98 (130) 99 Room Air Physical Exam CONSTITUTIONAL/GENERAL: This is an adequately nourished patient, in no apparent distress. TUBES/LINES/DRAINS: R chest Permacath in place - site OK SKIN: No jaundice, rashes, or lesions. Skin temperature appropriate. Not diaphoretic. HEAD: Atraumatic. Normocephalic. EYES: Pupils equal and round and reactive. Extraocular motions intact. No scleral icterus. No injection or drainage. Fundi not examined. ENT: Hearing grossly normal. Nose without bleeding or purulent drainage. Oral mucosae without visible erythema, exudates, masses, or lesions. NECK: Trachea midline. Supple, nontender. No palpable thyroid enlargement or nodularity. CARDIOVASCULAR: Regular rate and rhythm without murmurs, gallops, or rubs. No JVD. Peripheral pulses symmetric. RESPIRATORY/CHEST: Symmetric, unlabored respirations. Clear to auscultation. Breath sounds equal bilaterally. No wheezes, rales, or rhonchi. GASTROINTESTINAL: Abdomen soft, non-tender, nondistended. No hepato-splenomegaly , or palpable masses. No guarding. Bowel sounds present. RLQ PD cath in place - site OK Erythematous slightly draining mildly tender lump just below it Previous L PD cath site - healed MUSCULOSKELETAL: Extremities without clubbing, cyanosis, or edema. No joint tenderness or effusion noted. No calf tenderness. No mottling or clubbing. LYMPHATICS: No palpable cervical or supraclavicular adenopathy. NEUROLOGICAL: Awake and alert. Motor RUE/RLE normal limits. L side hemiplagia Follows commands. Slightly disarthric. L facial droop.. PSYCHIATRIC: No obvious anxiety/depression. no apparent hallucinations or other psychotic thought process. Laboratory Laboratory Tests Test 03/06/17 04:40 03/06/17 09:30 White Blood Count 7.3 Red Blood Count 3.59 Hemoglobin 11.4 Hematocrit 33.7 Mean Corpuscular Volume 94.0 Mean Corpuscular Hemoglobin 31.8 Mean Corpuscular Hemoglobin Concent 33.8 Red Cell Distribution Width 15.1 Platelet Count 160 Mean Platelet Volume 8.6 Neutrophils (%) (Auto) 73.1 Lymphocytes (%) (Auto) 13.4 Monocytes (%) (Auto) 10.1 Eosinophils (%) (Auto) 2.5 Basophils (%) (Auto) 0.9 Neutrophils # (Auto) 5.3 Lymphocytes # (Auto) 1.0 Monocytes # (Auto) 0.7 Eosinophils # (Auto) 0.2 Basophils # (Auto) 0.1 CBC Comment DIFF FINAL Differential Comment Blood Urea Nitrogen 57 Creatinine 6.71 Random Glucose 101 Total Protein 5.5 Albumin 2.2 Calcium Level 7.8 Alkaline Phosphatase 97 Aspartate Amino Transf (AST/SGOT) 85 Alanine Aminotransferase (ALT/SGPT) 137 Total Bilirubin 0.5 Sodium Level 142 Potassium Level 4.1 Chloride Level 107 Carbon Dioxide Level 23.7 Anion Gap 11 Estimat Glomerular Filtration Rate 8 Date/Time Source Procedure Growth Status 9/29/17 10:50 Blood Peripheral Aerobic Blood Culture - Preliminary NO GROWTH IN 1 DAY Resulted 03/05/17 10:50 Blood Peripheral Anaerobic Blood Culture - Preliminary NO GROWTH IN 1 DAY Resulted 03/05/17 12:40 Wound Abdomen Acid Fast Stain Pending Received 03/05/17 12:40 Wound Abdomen Mycobacterial Culture Pending Received Result Diagram: 03/06/17 0440 03/06/17 0440 Imaging Last Impressions Chest X-Ray 03/05/17 1026 Signed Impressions: Service Date/Time: Sunday, March 05, 2017 10:50 - CONCLUSION: 1. No acute cardiopulmonary disease. Jc Moyer MD Catheter Placement X-Ray 03/05/17 0000 Signed Impressions: Service Date/Time: Sunday, March 05, 2017 00:00 - CONCLUSION: Uncomplicated PermaCath placement as above. Judd Lizarraga MD Assessment and Plan Assessment and Plan PD cath AFB infx, rapid grower Primaxn, LevVon mariaithro Agree with removal Discussed Condition With Dr Joselin Mayer,Veronica uG MD Mar 06, 2017 11:55
[2017-03-06] MEDS ORDERED: PROPOFOL 200 MG/20 ML AMP IV ONE (12:00)
[2017-03-06] MEDS ORDERED: ROCURONIUM INJ 50 MG/5 ML SYRINGE IV PUSH ONE (12:00)
[2017-03-06] MEDS ORDERED: PHENYLEPH/NS 1000 MCG/10 ML SYR IV ONE (12:00)
[2017-03-06] MEDS ORDERED: LIDOCAINE HCL 1% PF 5 ML AMPULE OTHER ONE (12:00)
[2017-03-06] MEDS ORDERED: ONDANSETRON HCL 4 MG/2 ML VIAL IV PUSH ONE (12:00)
[2017-03-06] MEDS ORDERED: MISCELLANEOUS PHARMACY INFORMATION XX PRN (13:00)
[2017-03-06] MEDS ORDERED: ASP: Documented ESBL, MDR A baumannii or P. aeruginosa PRN (13:00)
[2017-03-06 13:30] VITALS: BP 173/80; PULSE 73; RESP 14; TEMP 96.6; O2SAT 100
--- NOTE | 2017-03-06 13:48 | HHI.PR ---
Subjective Remarks Follow up infected PD catheter 03/06/17-patient seen and examined; he had HD today. Plan for removal of PD catheter Objective Vitals Vital Signs Date Time Temp Pulse Resp B/P (MAP) Pulse Ox O2 Delivery O2 Flow Rate FiO2 03/06/17 08:00 95.9 70 18 184/92 (122) 96 03/05/17 20:00 96.5 74 17 169/92 (117) 98 03/05/17 16:00 97.8 90 18 125/69 (87) 95 03/05/17 15:20 03/05/17 14:52 70 12 196/98 (130) 99 Room Air I/O 03/05/17 03/05/17 03/05/17 03/06/17 03/06/17 03/06/17 07:00 15:00 23:00 07:00 15:00 23:00 Intake Total 50 ml 580 ml 0 ml Output Total 300 ml 2000 ml Balance 50 ml 580 ml -300 ml -2000 ml Intake Oral 480 ml 0 ml IV Total 50 ml 100 ml Output Urine Total 300 ml Hemodialysis 2000 ml # Bowel Movements 0 Result Diagram: 03/06/17 0440 03/06/17 0440 Imaging Last Impressions Chest X-Ray 03/05/17 1026 Signed Impressions: Service Date/Time: Sunday, March 05, 2017 10:50 - CONCLUSION: 1. No acute cardiopulmonary disease. Jc Moyer MD Catheter Placement X-Ray 03/05/17 0000 Signed Impressions: Service Date/Time: Sunday, March 05, 2017 00:00 - CONCLUSION: Uncomplicated PermaCath placement as above. Judd Lizarraga MD Objective Remarks GENERAL: NAD SKIN: Warm and dry. HEAD: Normocephalic. EYES: No scleral icterus. No injection or drainage. NECK: Supple, trachea midline. No JVD or lymphadenopathy. Permcath in place CARDIOVASCULAR: Regular rate and rhythm without murmurs, gallops, or rubs. RESPIRATORY: Breath sounds equal bilaterally. No accessory muscle use. GASTROINTESTINAL: Abdomen soft, non-tender, nondistended. MUSCULOSKELETAL: No cyanosis, or edema. BACK: Nontender without obvious deformity. No CVA tenderness. A/P Problem List: (1) Peritoneal dialysis catheter infection ICD Code: T85.71XA - Infection and inflammatory reaction due to peritoneal dialysis catheter, initial encounter Assessment and Plan 66-year-old man with Peritoneal dialysis catheter infection Recurrent aspiration with prior infected PD catheter which was replaced 11/24 Interventional radiology consulted and patient is status post placement of [facility] Nephrology ff Currently on Levaquin, Primaxin and Azithromycin per ID specialist pending culture report Plan for removal of PD catheter today by General surgery End stage renal disease on dialysis Management per nephrology He had HD today Hypertension Labile BP Resume outpatient medications Start hydralazine when necessary History of CAD, hypertension, hyperlipidemia and other chronic medical conditions Resume outpatient medications Mauricio Ahn MD Mar 06, 2017 13:48
[2017-03-06] MEDS ORDERED: BUPIVACAINE/EPINEPHRINE 0.25% 50 ML VIAL ONE (14:45)
[2017-03-06] MEDS: ceFAZolin 2 GM PREMIX 50 ML IV SCH (14:55)
[2017-03-06] MEDS: AZITHROMYCIN INJ 500 MG in SODIUM CHLOR 0.9% 250 ML INJ 250 ML IV SCH (15:00)
--- NOTE | 2017-03-06 15:08 | HHI.PR ---
Immediate Post Op Note Procedure Date: Mar 06, 2017 Pre Op Diagnosis: infected pd cath Post Op Diagnosis: same Surgeon: Marlon Schofield MD Analytical Lab Analyst(s): see or sheet Procedure: removal of pd cath, vac placement Findings: pus around cath and in tract around tubing Complications: none Specimen(s) removed: pus Estimated blood loss: 5cc Anesthesia: General Drains: Hemovac Patient to: PACU Patient Condition: Good Marlon Schofield MD Mar 06, 2017 15:08
[2017-03-06] MEDS ORDERED: DO NOT ADM ANY ANTICOAGULANT DRUGS PRN (15:17)
[2017-03-06] MEDS ORDERED: *morphine SULFATE 8 MG/ML PERIprocedure ONLY ONE (15:30)
[2017-03-06 16:00] VITALS: BP 194/84; PULSE 76; RESP 19; TEMP 95.5; O2SAT 100
[2017-03-06] MEDS: IMIPENEM/CILASTATIN INJ 250 MG in SODIUM CHLORIDE 0.9% INJ 100 ML IV SCH (16:00)
[2017-03-06] MEDS: ATORVASTATIN 10 MG TAB PO SCH (19:37)
[2017-03-06 20:00] VITALS: BP 133/70; PULSE 75; RESP 16; TEMP 97.3; O2SAT 94
[2017-03-06] MEDS ORDERED: ACETAMINOPHEN/HYDROcodone 325 MG/7.5 MG TAB PO PRN (20:15)
[2017-03-06] MEDS ORDERED: ACETAMINOPHEN/HYDROcodone 325 MG/5 MG TAB PO PRN (20:15)
[2017-03-06] MEDS: TEMAZEPAM 15 MG CAP PO PRN (20:54)
--- NOTE | 2017-03-06 22:07 | MP ---
cc: JANIS SCHOFIELD MD DATE OF SURGERY: 03/06/2017. PREOPERATIVE DIAGNOSIS: Infected peritoneal dialysis catheter. POSTOPERATIVE DIAGNOSIS: Infected peritoneal dialysis catheter. PROCEDURE PERFORMED: Removal of infected peritoneal dialysis catheter. Negative pressure vac placement. SURGEON: Janis Schofield MD. ANESTHESIA: General endotracheal anesthesia. IV FLUIDS: See anesthesia sheet. ESTIMATED BLOOD LOSS: 10 cc. DRAINS: VAC placement. COMPLICATIONS: None. WOUND CLASSIFICATION: Contaminated. Dirty. SPECIMENS: Purulent drainage from abdominal wall infected catheter. COMPLICATIONS: None. INDICATIONS FOR THE PROCEDURE: The patient is a 66-year-old male with history of ESRD with dialysis dependence. He was undergoing peritoneal dialysis catheter and developed a wound infection. Evidently this is his second wound infection and necessary for the catheter to be removed. DESCRIPTION OF THE PROCEDURE IN DETAIL: The patient was taken to the operating suite and placed in supine position. He was prepared in the usual sterile fashion after induction of general endotracheal anesthesia. Brief time-out done stating correct patient, procedure, surgical site with all in agreement with this. Attention first directed to the catheter with exit to the skin, noticed a little bit of erythema and redness. A hemostat was used to dissect around the catheter at the outlet. Local anesthetic injected around this in the track site. Once this was facilitated for mobilization also where the port entered the peritoneal cavity noted the abscess cavity at this incision site. Local anesthetic injected and a 15 blade scalpel used to transect along the previous incisional scar. Upon transection it was noted to be purulent drainage coming from wound. This was suctioned and sent for cultures. Further dissection with Bovie electrocautery and hemostat done in order to fully mobilize the catheter tubing that was identified. Proximally the tube was also dissected out in order to fully mobilize and dissect the cuff as well. Both cuffs were mobilized and again Bovie electrocautery was used to facilitate this. Once the catheter was completely removed, irrigation was used to completely wash out the wound. Hemostasis was obtained with Bovie electrocautery. Following this, the VAC was obtained. A sponge was placed cut to size of the cavity and placed on the wound. The plastic was placed and the track pad was placed. The wound VAC was connected without evidence of leaking and the proximal incision was packed with a small 4 x 4. The patient tolerated the procedure well with no intraoperative complications. The patient was extubated and taken to the post-anesthesia care unit. MD NONI Donald/JENNA /5:45 PM /9:50 PM [facility]
[2017-03-07 00:44] VITALS: BP 135/77; PULSE 77; RESP 16; TEMP 96.1; O2SAT 96
[2017-03-07] MEDS: IMIPENEM/CILASTATIN INJ 250 MG in SODIUM CHLORIDE 0.9% INJ 100 ML IV SCH ×2 (03:44→16:58)
[2017-03-07 04:49] VITALS: BP 165/84; PULSE 66; RESP 16; TEMP 96; O2SAT 98
[2017-03-07] MEDS: LEVOTHYROXINE SODIUM 50 MCG TAB PO SCH (06:00)
[2017-03-07 08:00] VITALS: BP 180/86; PULSE 80; RESP 17; TEMP 97.5; O2SAT 97
--- NOTE | 2017-03-07 11:18 | HHI.NPPN ---
Subjective Additional Remarks No acute complaints, tolerated HD yesterday, had PD catheter removed after dialysis yesterday - with wound vac in place now. Objective Data Data Vital Signs Date Time Temp Pulse Resp B/P (MAP) Pulse Ox O2 Delivery O2 Flow Rate FiO2 03/07/17 08:00 97.5 80 17 180/86 (117) 97 03/07/17 04:49 96.0 66 16 165/84 (111) 98 03/07/17 00:44 96.1 77 16 135/77 (96) 96 03/06/17 20:00 97.3 75 16 133/70 (91) 94 03/06/17 16:00 95.5 76 19 194/84 (120) 100 03/06/17 15:45 77 14 160/86 (110) 100 Nasal Cannula 2 03/06/17 15:30 75 12 140/78 (98) 100 Nasal Cannula 2 03/06/17 15:17 97.9 72 16 140/73 (95) 98 Nasal Cannula 2 03/06/17 13:30 96.6 73 14 173/80 (111) 100 -: 03/06/17 0440 03/06/17 0440 Microbiology 03/06/17 Fungal Smear - Final, Resulted NO FUNGAL ELEMENTS SEEN. 03/06/17 Fungal Culture, Resulted Pending 03/06/17 Acid Fast Stain, Received Pending 03/06/17 Mycobacterial Culture, Received Pending 03/06/17 Gram Stain - Final, Resulted 03/06/17 Wound Culture, Resulted Pending Physical Exam General Appearance: Well Developed, Well Nourished, No Acute Distress Eyes Eye Exam: Pupils Equal Throat Throat Exam: Oral Mucosa [place] & Moist Neck Neck Exam: Neck Supple Pulmonary Resp Exam: Clear Bilaterally Cardiology CV Exam: Regular, Normal Sinus Rhythm Gastrointestinal/Abdomen GI Exam: Soft, Non-Tender, Bowel Sounds Present Integumentary Skin Exam: Dry, Intact Extremeties Extremities Exam: No Edema Neurologic Neuro Exam: Alert, Awake, Oriented Assessment/Plan Problem List: (1) Peritoneal dialysis catheter infection ICD Codes: T85.71XA - Infection and inflammatory reaction due to peritoneal dialysis catheter, initial encounter Plan: PD catheter removed yesterday, cultures are pending. Initial positive AFB from last Wednesday outpatient, speciation pending outpatient. ID consulted - now on: Primaxin, Levaquin, Azithromycin Afebrile today with wound vac, follow with surgery. Discussed with Dr. Mayer - she does not have an outpatient clinic, will need eventual arrangement for outpatient ID follow-up. Also, avoid PICC lines given potential conversion to long-term HD and need for AV access. If PICC line necessary for antibiotics, can have a tunneled internal jugular vein PICC line placed with interventional radiology (or potential IJ port if tunneled IJ PICC unavailable..) (2) ESRD (end stage renal disease) on dialysis ICD Codes: N18.6 - End stage renal disease; Z99.2 - Dependence on renal dialysis Plan: Tunneled HD catheter placed Wednesday Seen on HD yesterday, continue HD TTS - next HD Wednesday. avoid gadolinium; renally does antibiotics if appropriate Will need arrangements for outpatient HD. May evaluate for AV access inpatient or outpatient - unclear if he would be a candidate for retrying PD again. (3) HTN (hypertension) ICD Codes: I10 - Essential (primary) hypertension Plan: BP slightly elevated, HD today. Continue to monitor. (4) Bone metabolism disorder ICD Codes: E88.9 - Metabolic disorder, unspecified; M90.80 - Osteopathy in diseases classified elsewhere, unspecified site Plan: check phosphorus level in AM start binders if needed (5) Atrial fibrillation ICD Codes: I48.91 - Unspecified atrial fibrillation Plan: Recently stopped Amiodarone and increased on Cardizem with Dr. Cotto outpatient. HR 70s, continue to monitor. Judd Mejia MD Mar 07, 2017 11:18
[2017-03-07] MEDS: METOPROLOL SUCCINATE 50 MG EXTENDED RELEASE TAB PO SCH ×2 (11:27→19:28)
[2017-03-07] MEDS: DOXAZOSIN MESYLATE 2 MG TAB PO SCH (11:28)
[2017-03-07] MEDS: hydrALAZINE HCL 50 MG TAB PO SCH ×2 (11:28→19:27)
[2017-03-07] MEDS: ALLOPURINOL 100 MG TAB PO SCH (11:28)
[2017-03-07] MEDS: DILTIAZEM-CD 240 MG CAP ER PO SCH (11:28)
[2017-03-07] MEDS: SODIUM CHLORIDE 0.9% FLUSH 10 ML FLUSH IV FLUSH SCH ×2 (11:36→19:28)
[2017-03-07 12:00] VITALS: BP 168/90; PULSE 79; RESP 15; TEMP 97.4; O2SAT 99
--- NOTE | 2017-03-07 12:13 | HHI.PR ---
Subjective Remarks Follow up infected PD catheter 03/06/17-patient seen and examined; he had HD today. Plan for removal of PD catheter 03/07/17-patient seen and examined, PD catheter removed yesterday and wound VAC in place. Patient currently afebrile. No acute event overnight. Asking when can he be discharged home. Objective Vitals Vital Signs Date Time Temp Pulse Resp B/P (MAP) Pulse Ox O2 Delivery O2 Flow Rate FiO2 03/07/17 08:00 97.5 80 17 180/86 (117) 97 03/07/17 04:49 96.0 66 16 165/84 (111) 98 03/07/17 00:44 96.1 77 16 135/77 (96) 96 03/06/17 20:00 97.3 75 16 133/70 (91) 94 03/06/17 16:00 95.5 76 19 194/84 (120) 100 03/06/17 15:45 77 14 160/86 (110) 100 Nasal Cannula 2 03/06/17 15:30 75 12 140/78 (98) 100 Nasal Cannula 2 03/06/17 15:17 97.9 72 16 140/73 (95) 98 Nasal Cannula 2 03/06/17 13:30 96.6 73 14 173/80 (111) 100 I/O 03/06/17 03/06/17 03/06/17 03/07/17 03/07/17 03/07/17 07:00 15:00 23:00 07:00 15:00 23:00 Intake Total 0 ml 500 ml 100 ml Output Total 300 ml 2000 ml 10 ml 400 ml Balance -300 ml -2000 ml 490 ml -300 ml Intake Oral 0 ml 300 ml IV Total 100 ml Other 200 ml Output Urine Total 300 ml 400 ml Drainage Total 0 ml Hemodialysis 2000 ml Estimated Blood Loss 10 ml # Voids 1 # Bowel Movements 0 1 1 Result Diagram: 03/06/17 0440 03/06/17 0440 Imaging Last Impressions Chest X-Ray 03/05/17 1026 Signed Impressions: Service Date/Time: Sunday, March 05, 2017 10:50 - CONCLUSION: 1. No acute cardiopulmonary disease. Jc Moyer MD Catheter Placement X-Ray 03/05/17 0000 Signed Impressions: Service Date/Time: Sunday, March 05, 2017 00:00 - CONCLUSION: Uncomplicated PermaCath placement as above. Judd Lizarraga MD Objective Remarks GENERAL: NAD SKIN: Warm and dry. HEAD: Normocephalic. EYES: No scleral icterus. No injection or drainage. NECK: Supple, trachea midline. No JVD or lymphadenopathy. Permcath in place CARDIOVASCULAR: Regular rate and rhythm without murmurs, gallops, or rubs. RESPIRATORY: Breath sounds equal bilaterally. No accessory muscle use. GASTROINTESTINAL: Abdomen soft, non-tender, nondistended. dressing in place; wound vac in place MUSCULOSKELETAL: No cyanosis, or edema. BACK: Nontender without obvious deformity. No CVA tenderness. Procedures PD catheter removal with wound VAC placement 03/06/17 A/P Problem List: (1) Peritoneal dialysis catheter infection ICD Code: T85.71XA - Infection and inflammatory reaction due to peritoneal dialysis catheter, initial encounter Assessment and Plan 66-year-old man with Peritoneal dialysis catheter infection Recurrent aspiration with prior infected PD catheter which was replaced 11/24 Interventional radiology consulted and patient is status post placement of permacath Nephrology ff Currently on Levaquin, Primaxin and Azithromycin per ID specialist pending culture report s/p PD catheter removal with wound VAC placement 03/06/17 Angina to monitor culture report End stage renal disease on dialysis Management per nephrology Continue with HD per nephrology Hypertension Continue outpatient medications hydralazine when necessary History of CAD, hypertension, hyperlipidemia and other chronic medical conditions Continue outpatient medications Mauricio Ahn MD Mar 07, 2017 12:13
[2017-03-07 16:00] VITALS: BP 173/83; PULSE 77; RESP 16; TEMP 97.4; O2SAT 98
[2017-03-07] MEDS: AZITHROMYCIN INJ 500 MG in SODIUM CHLOR 0.9% 250 ML INJ 250 ML IV SCH (16:06)
--- NOTE | 2017-03-07 17:43 | HHI.PR ---
Subjective Subjective Notes Feels well Tolerating diet No pain Objective Vitals/I&O Vital Signs Date Time Temp Pulse Resp B/P (MAP) Pulse Ox O2 Delivery O2 Flow Rate FiO2 03/07/17 16:00 97.4 77 16 173/83 (113) 98 03/06/17 15:45 Nasal Cannula 2 03/06/17 10:00 21 Labs Date/Time Source Procedure Growth Status 03/05/17 10:50 Blood Peripheral Aerobic Blood Culture - Preliminary NO GROWTH IN 2 DAYS Resulted 03/05/17 10:50 Blood Peripheral Anaerobic Blood Culture - Preliminary NO GROWTH IN 2 DAYS Resulted 03/06/17 14:50 Wound Abdomen Fungal Smear - Final NO FUNGAL ELEMENTS SEEN. Resulted 03/06/17 14:50 Wound Abdomen Fungal Culture Pending Resulted Abdomen: Non-distended, Non-tender Narrative Exam VAC dressing in place; minimal drainage A/P Assessment and Plan POD #1 I&D abscess with VAC placement Dr. Mayer states pt. may be sent home on oral meds Consider removing VAC 03/08 and sending home on dressing changes. Hoang Bonilla MD Mar 07, 2017 17:43
[2017-03-07] MEDS: LEVOFLOXACIN 500 MG PREMIX INJ 100 ML IV SCH (18:26)
[2017-03-07] MEDS: ATORVASTATIN 10 MG TAB PO SCH (19:27)
[2017-03-07 20:32] VITALS: BP 174/88; PULSE 72; RESP 20; TEMP 99.1; O2SAT 98
[2017-03-07] MEDS: TEMAZEPAM 15 MG CAP PO PRN (20:34)
[2017-03-08 00:08] VITALS: BP 137/65; PULSE 71; RESP 20; TEMP 97.9; O2SAT 98
[2017-03-08] MEDS: IMIPENEM/CILASTATIN INJ 250 MG in SODIUM CHLORIDE 0.9% INJ 100 ML IV SCH ×2 (03:58→17:39)
[2017-03-08 06:19] LABS: AUTOMATED NEUTROPHIL # 4.8 TH/MM3 (1.8-7.7); BASOPHIL % 0.7 % (0.0-2.0); EOSINOPHIL # 0.1 TH/MM3 (0-0.4); EOSINOPHIL % 2.2 % (0.0-4.0); HEMATOCRIT 35.3 % (39.0-51.0); HEMO FLAGS DIFF FINAL; LYMPH % 9.8 % (9.0-44.0); LYMPHOCYTE # 0.6 TH/MM3 (1.0-4.8); MEAN CELL VOLUME 94.8 FL (80.0-100.0); MEAN CORPUSCULAR HEMOGLOBIN 32.2 PG (27.0-34.0); MONO % 11.3 % (0.0-8.0); PLATELET COUNT 143 TH/MM3 (150-450); RED BLOOD COUNT 3.72 MIL/MM3 (4.50-5.90); RED CELL DISTRIBUTION WIDTH 14.8 % (11.6-17.2); WHITE BLOOD COUNT 6.3 TH/MM3 (4.0-11.0)
[2017-03-08] MEDS: LEVOTHYROXINE SODIUM 50 MCG TAB PO SCH (06:42)
[2017-03-08 06:51] LABS: BICARBONATE 26.1 MEQ/L (21.0-32.0); POTASSIUM 4.1 MEQ/L (3.5-5.1)
[2017-03-08 08:00] VITALS: BP 186/92; PULSE 78; RESP 19; TEMP 98.1; O2SAT 98
--- NOTE | 2017-03-08 08:56 | HHI.FF ---
Face to Face Verification Diagnosis: (1) Dialysis patient (2) Peritoneal dialysis catheter infection Home Health Nursing Order: Wound care and dressing changes Instructions: Dressing change to mid abdomen---wet to dry dressing---change BID; once by [facility] and once by family I have seen patient Kamron Mckeon on 03/08/17. My clinical findings support the need for the requested home health care services because: Limited ability to care for self I certify that my clinical findings support that this patient is homebound because: Post-op weakness Traci Grace Mar 08, 2017 08:56
--- NOTE | 2017-03-08 10:33 | HHI.PR ---
Subjective Subjective Notes Ready to go home is an RN who can help with dressing changes at home Objective Vitals/I&O Vital Signs Date Time Temp Pulse Resp B/P (MAP) Pulse Ox O2 Delivery O2 Flow Rate FiO2 03/08/17 08:00 98.1 78 19 186/92 (123) 98 03/06/17 15:45 Nasal Cannula 2 03/06/17 10:00 21 Labs Laboratory Tests Test 03/08/17 05:30 White Blood Count 6.3 Red Blood Count 3.72 Hemoglobin 12.0 Hematocrit 35.3 Mean Corpuscular Volume 94.8 Mean Corpuscular Hemoglobin 32.2 Mean Corpuscular Hemoglobin Concent 34.0 Red Cell Distribution Width 14.8 Platelet Count 143 Mean Platelet Volume 9.0 Neutrophils (%) (Auto) 76.0 Lymphocytes (%) (Auto) 9.8 Monocytes (%) (Auto) 11.3 Eosinophils (%) (Auto) 2.2 Basophils (%) (Auto) 0.7 Neutrophils # (Auto) 4.8 Lymphocytes # (Auto) 0.6 Monocytes # (Auto) 0.7 Eosinophils # (Auto) 0.1 Basophils # (Auto) 0.0 CBC Comment DIFF FINAL Differential Comment Blood Urea Nitrogen 56 Creatinine 6.39 Random Glucose 107 Calcium Level 7.6 Sodium Level 139 Potassium Level 4.1 Chloride Level 104 Carbon Dioxide Level 26.1 Anion Gap 9 Estimat Glomerular Filtration Rate 9 Date/Time Source Procedure Growth Status 03/05/17 10:50 Blood Peripheral Aerobic Blood Culture - Preliminary NO GROWTH IN 2 DAYS Resulted 03/05/17 10:50 Blood Peripheral Anaerobic Blood Culture - Preliminary NO GROWTH IN 2 DAYS Resulted 03/06/17 14:50 Wound Abdomen Fungal Smear - Final NO FUNGAL ELEMENTS SEEN. Resulted 03/06/17 14:50 Wound Abdomen Fungal Culture Pending Resulted Cardiovascular: Regular Lungs: Clear Abdomen: Other (small midline wound vac in place with good seal ) Extremities: No edema A/P Assessment and Plan 66 year old male POD2 removal of infected PD cath -DC Wound Vac; place wet to dry dressings -Renal diet -Antibiotics per ID -Okay to DC from GS standpoint; Follow up 7-10 days in office with Dr. Schofield Attending Statement patient seen at bedside vac change and d/c planning with dressing changes no fevers Attestation The exam, history, and the medical decision-making described in the above note were completed with the assistance of the mid-level provider. I reviewed and agree with the findings presented. I attest that I had a [id number] encounter with the patient on the same day, and personally performed and documented my assessment and findings in the medical record. Traci Grace Mar 08, 2017 10:33 Marlon Schofield MD Mar 12, 2017 15:31
[2017-03-08] MEDS: DILTIAZEM-CD 240 MG CAP ER PO SCH (10:34)
[2017-03-08] MEDS: ALLOPURINOL 100 MG TAB PO SCH (10:35)
[2017-03-08] MEDS: hydrALAZINE HCL 50 MG TAB PO SCH ×2 (10:35→20:30)
[2017-03-08] MEDS: DOXAZOSIN MESYLATE 2 MG TAB PO SCH (10:35)
[2017-03-08] MEDS: METOPROLOL SUCCINATE 50 MG EXTENDED RELEASE TAB PO SCH ×2 (10:35→20:30)
[2017-03-08] MEDS: SODIUM CHLORIDE 0.9% FLUSH 10 ML FLUSH IV FLUSH SCH ×2 (10:35→20:30)
--- NOTE | 2017-03-08 11:37 | HHI.NPPN ---
Subjective Renal Failure: Chronic, Acute, End Stage Renal Disease Interval History He is not in distress, afebrile. Wound vac to be removed today. (Jeaneth Roth) Objective Data Data Vital Signs Date Time Temp Pulse Resp B/P (MAP) Pulse Ox O2 Delivery O2 Flow Rate FiO2 03/08/17 08:00 98.1 78 19 186/92 (123) 98 03/08/17 00:08 97.9 71 20 137/65 (89) 98 03/07/17 20:32 99.1 72 20 174/88 (116) 98 03/07/17 16:00 97.4 77 16 173/83 (113) 98 03/07/17 12:00 97.4 79 15 168/90 (116) 99 (Jeaneth Roth) -: 03/08/17 0530 03/08/17 0530 Imaging Last Impressions Chest X-Ray 03/05/17 1026 Signed Impressions: Service Date/Time: Sunday, March 05, 2017 10:50 - CONCLUSION: 1. No acute cardiopulmonary disease. Jc Moyer MD Catheter Placement X-Ray 03/05/17 0000 Signed Impressions: Service Date/Time: Sunday, March 05, 2017 00:00 - CONCLUSION: Uncomplicated PermaCath placement as above. Judd Lizarraga MD Tubes & Lines: Perma-Cath (Jeaneth Roth) Physical Exam General Appearance: Well Developed, Well Nourished, No Acute Distress (Jeaneth Roth) Eyes Eye Exam: Pupils Equal (Jeaneth Roth) Throat Throat Exam: Oral Mucosa [place] & Moist (Jeaneth Roth) Neck Neck Exam: Neck Supple (Jeaneth Roth) Pulmonary Resp Exam: Clear Bilaterally, Breath Sounds Equal (Jeaneth Roth) Cardiology CV Exam: Regular, Normal Sinus Rhythm (Jeaneth Roth) Gastrointestinal/Abdomen GI Exam: Soft, Non-Tender, Bowel Sounds Present (Jeaneth Roth) Musculoskeletal MS Exam: Normal Tone, Good Strength (Jeaneth Roth) Integumentary Skin Exam: Clear, Warm, Dry, Intact (Jeaneth Roth) Extremeties Extremities Exam: No Edema, Pedal Pulses Palpable Extremeties Remarks left arm hemiplegia (Jeaneth Roth) Neurologic Neuro Exam: Alert, Awake, Oriented (Jeaneth Roth) Assessment/Plan Discussed Condition With: Patient Assessment Summary: Anemia of CKD, End Stage Renal Disease Problem List: (1) Peritoneal dialysis catheter infection ICD Codes: T85.71XA - Infection and inflammatory reaction due to peritoneal dialysis catheter, initial encounter Plan: PD catheter removed, cultures are pending. Initial positive AFB from last Wednesday outpatient, speciation pending outpatient. ID consulted, D/W Dr. Mayer regarding discharge Antibiotics To be on Amikacin with HD; also oral Levaquin and Azithromycin to see Dr. Osuna outpatient as Dr. Mayer does not have an outpatient clinic Converted to HD as below (2) ESRD (end stage renal disease) on dialysis ICD Codes: N18.6 - End stage renal disease; Z99.2 - Dependence on renal dialysis Plan: Tunneled HD catheter placed Wednesday Continue HD TTS, next treatment tomorrow Outpatient arrangements for [facility] are in process avoid gadolinium; renally does antibiotics if appropriate (3) HTN (hypertension) ICD Codes: I10 - Essential (primary) hypertension Plan: Continue present medications (4) Bone metabolism disorder ICD Codes: E88.9 - Metabolic disorder, unspecified; M90.80 - Osteopathy in diseases classified elsewhere, unspecified site Plan: check phosphorus level in AM start binders if needed (5) Atrial fibrillation ICD Codes: I48.91 - Unspecified atrial fibrillation Plan: On Cardizem Rate is controlled (Jeaneth Roth) Problem List: (1) Peritoneal dialysis catheter infection ICD Codes: T85.71XA - Infection and inflammatory reaction due to peritoneal dialysis catheter, initial encounter Plan: PD catheter removed, cultures are pending. Initial positive AFB from last Wednesday outpatient, speciation pending outpatient. ID consulted, D/W Dr. Mayer regarding discharge Antibiotics To be on Amikacin with HD; also oral Levaquin and Azithromycin to see Dr. Osuna outpatient as Dr. Mayer does not have an outpatient clinic Converted to HD as below (2) ESRD (end stage renal disease) on dialysis ICD Codes: N18.6 - End stage renal disease; Z99.2 - Dependence on renal dialysis Plan: Tunneled HD catheter placed Wednesday Continue HD TTS, next treatment tomorrow Outpatient arrangements for [facility] are in process avoid gadolinium; renally does antibiotics if appropriate (3) HTN (hypertension) ICD Codes: I10 - Essential (primary) hypertension Plan: Continue present medications (4) Bone metabolism disorder ICD Codes: E88.9 - Metabolic disorder, unspecified; M90.80 - Osteopathy in diseases classified elsewhere, unspecified site Plan: check phosphorus level in AM start binders if needed (5) Atrial fibrillation ICD Codes: I48.91 - Unspecified atrial fibrillation Plan: On Cardizem Rate is controlled Plan patient was seen and examined. Agree with above assessment and plan. Discussed with Dr. Mayer. Patient needs outpatient dialysis arrangements along with arrangements for administration of antibiotics in the outpatient setting. (Deangelo Dsouza MD) Jeaneth RothP Mar 08, 2017 11:37 Deangelo Dsouza MD Mar 08, 2017 21:31
--- NOTE | 2017-03-08 11:45 | HHI.PR ---
Addendum to Inpatient Note Additional Information dw Dr Lianna osorio removal of infected PD cath clx P AFB stain neg Sugg o/op abx: AMikacin levaquine azithro Abx will need to be adjusted per final clx and sensitivity report Veronica Mayer MD Mar 08, 2017 11:45
[2017-03-08 12:00] VITALS: BP 193/94; PULSE 74; RESP 19; TEMP 97.3; O2SAT 96
--- NOTE | 2017-03-08 13:20 | HHI.PR ---
Subjective Remarks Follow up infected PD catheter 03/06/17-patient seen and examined; he had HD today. Plan for removal of PD catheter 03/07/17-patient seen and examined, PD catheter removed yesterday and wound VAC in place. Patient currently afebrile. No acute event overnight. Asking when can he be discharged home. 03/08/17-patient seen and examined, wound VAC was removed today. Patient denies any chills or shortness of breath. States he is ready for discharge home. Objective Vitals Vital Signs Date Time Temp Pulse Resp B/P (MAP) Pulse Ox O2 Delivery O2 Flow Rate FiO2 03/08/17 12:00 97.3 74 19 193/94 (127) 96 03/08/17 08:00 98.1 78 19 186/92 (123) 98 03/08/17 00:08 97.9 71 20 137/65 (89) 98 03/07/17 20:32 99.1 72 20 174/88 (116) 98 03/07/17 16:00 97.4 77 16 173/83 (113) 98 I/O 03/07/17 03/07/17 03/07/17 03/08/17 03/08/17 03/08/17 07:00 15:00 23:00 07:00 15:00 23:00 Intake Total 100 ml 1025 ml 680 ml Output Total 400 ml 650 ml 350 ml Balance -300 ml 375 ml 330 ml Intake Oral 575 ml 580 ml IV Total 100 ml 450 ml 100 ml Output Urine Total 400 ml 650 ml 350 ml Drainage Total 0 ml 0 ml # Voids 1 2 # Bowel Movements 1 0 Result Diagram: 03/08/17 0530 03/08/17 0530 Imaging Last Impressions Chest X-Ray 03/05/17 1026 Signed Impressions: Service Date/Time: Sunday, March 05, 2017 10:50 - CONCLUSION: 1. No acute cardiopulmonary disease. cJ Moyer MD Catheter Placement X-Ray 03/05/17 0000 Signed Impressions: Service Date/Time: Sunday, March 05, 2017 00:00 - CONCLUSION: Uncomplicated PermaCath placement as above. Judd Lizarraga MD Objective Remarks GENERAL: NAD SKIN: Warm and dry. HEAD: Normocephalic. EYES: No scleral icterus. No injection or drainage. NECK: Supple, trachea midline. No JVD or lymphadenopathy. Permcath in place CARDIOVASCULAR: Regular rate and rhythm without murmurs, gallops, or rubs. RESPIRATORY: Breath sounds equal bilaterally. No accessory muscle use. GASTROINTESTINAL: Abdomen soft, non-tender, nondistended. dressing in place MUSCULOSKELETAL: No cyanosis, or edema. BACK: Nontender without obvious deformity. No CVA tenderness. Procedures PD catheter removal with wound VAC placement 03/06/17 A/P Problem List: (1) Peritoneal dialysis catheter infection ICD Code: T85.71XA - Infection and inflammatory reaction due to peritoneal dialysis catheter, initial encounter Assessment and Plan 66-year-old man with Peritoneal dialysis catheter infection Recurrent aspiration with prior infected PD catheter which was replaced 11/24 Interventional radiology consulted and patient is status post placement of permacath Nephrology ff Currently on Levaquin, Primaxin and Azithromycin per ID specialist pending culture report s/p PD catheter removal with wound VAC placement 03/06/17; now wound VAC removed today 03/08/17 Awaiting for final recommendation from ID End stage renal disease on dialysis Management per nephrology Continue with HD per nephrology Hypertension Labile BP Continue outpatient medications hydralazine when necessary History of CAD, hypertension, hyperlipidemia and other chronic medical conditions Continue outpatient medications Mauricio Ahn MD Mar 08, 2017 13:20
[2017-03-08] MEDS ORDERED: HYDR-3580 PO (13:21)
--- NOTE | 2017-03-08 13:26 | HHI.DS ---
Discharge Summary Admission Date Mar 05, 2017 at 13:37 Discharge Date: Mar 08, 2017 Admitting Diagnosis infected peritoneal catheter. History of end-stage renal disease on (1) Peritoneal dialysis catheter infection ICD Code: T85.71XA - Infection and inflammatory reaction due to peritoneal dialysis catheter, initial encounter Procedures PD catheter removal with wound VAC placement 03/06/17 Brief History - From Admission 66-year-old male with a history of end-stage renal disease on peritoneal dialysis who back in 11/24/16 at his PD catheter removed and replaced by vascular surgery secondary to infection was sent to the ED by his hide splitter for evaluation of peritoneal dialysis catheter infection. Patient states, over the past 10 days he's been having abdominal irritation and noticed redness around the PD site He was seen by his PCP will prescribe IV Fortaz and vancomycin on 02/19/17 as well as oral rifampin. However over the past 2 days patient noticed drainage at the PD site along with some erythema. He denies any febrile episode. CBC/BMP: 03/08/17 0530 03/08/17 0530 Significant Findings Laboratory Tests Test 03/06/17 04:40 03/06/17 09:30 03/08/17 05:30 Red Blood Count 3.59 MIL/MM3 (4.50-5.90) 3.72 MIL/MM3 (4.50-5.90) Hemoglobin 11.4 GM/DL (13.0-17.0) 12.0 GM/DL (13.0-17.0) Hematocrit 33.7 % (39.0-51.0) 35.3 % (39.0-51.0) Neutrophils (%) (Auto) 73.1 % (16.0-70.0) 76.0 % (16.0-70.0) Monocytes (%) (Auto) 10.1 % (0.0-8.0) 11.3 % (0.0-8.0) Blood Urea Nitrogen 57 MG/DL (7-18) 56 MG/DL (7-18) Creatinine 6.71 MG/DL (0.60-1.30) 6.39 MG/DL (0.60-1.30) Total Protein 5.5 GM/DL (6.4-8.2) Albumin 2.2 GM/DL (3.4-5.0) Calcium Level 7.8 MG/DL (8.5-10.1) 7.6 MG/DL (8.5-10.1) Aspartate Amino Transf (AST/SGOT) 85 U/L (15-37) Alanine Aminotransferase (ALT/SGPT) 137 U/L (12-78) Estimat Glomerular Filtration Rate 8 ML/MIN (>89) 9 ML/MIN (>89) Platelet Count 143 TH/MM3 (150-450) Lymphocytes # (Auto) 0.6 TH/MM3 (1.0-4.8) Random Glucose 107 MG/DL (74-106) Imaging Last Impressions Chest X-Ray 03/05/17 1026 Signed Impressions: Service Date/Time: Sunday, March 05, 2017 10:50 - CONCLUSION: 1. No acute cardiopulmonary disease. Jc Moyer MD Catheter Placement X-Ray 03/05/17 0000 Signed Impressions: Service Date/Time: Sunday, March 05, 2017 00:00 - CONCLUSION: Uncomplicated PermaCath placement as above. Judd Lizarraga MD PE at Discharge unlabored breathing, CTA x 2 abd is soft, NT, ND, healing wound w/ wet to dry dressing in place Hospital Course Patient admitted secondary to Peritoneal dialysis catheter infection for which initially Interventional radiology was consulted and patient underwent placement of permacath. General surgery was consulted and patient had PD catheter removed with placement of wound VAC 03/06/17 which was subsequently removed on 03/08/17. Infectious disease specialist was consulted and patient was started on IV antibiotics including Primaxin, Levaquin and azithromycin. Nephrology was consulted and patient had in-house hemodialysis. He was continued on his treatment for other chronic medical conditions with adjustment of BP meds. Patient will need follow-up on discharge with infectious disease specialist as well as nephrology and general surgery. Pt Condition on Discharge: Stable Discharge Disposition: Disch w/ Home Health Serv Discharge Time: > 30 minutes Discharge Instructions DIET: Follow Instructions for: Heart Healthy Diet Activities you can perform: Regular-No Restrictions Follow up Referrals: Infectious Disease - 1 Week with Jennifer Osuna MD PCP Follow-up - 1 Week Surgical - 1 Week with Marlon Schofield MD New Medications: Azithromycin (Azithromycin) 500 Mg Tab 500 MG PO DAILY for Infection for 90 Days, #90 TAB 0 Refills Cefoxitin Inj (Cefoxitin Inj) 1 Gm/50 Ml Bagp 1 GM IV WITH DIALYSIS for Infection for 30 Days, BAG 0 Refills Levofloxacin (Levaquin) 500 Mg Tablet 500 MG PO EVERY OTHER DAY for Infection for 45 Days, TAB 0 Refills Hydrocodone-Acetaminophen (Hydrocodone-Acetaminophen) 7.5-325 mg Tab 1 TAB PO Q4H PRN for PAIN SCALE 6-10, #20 TAB Continued Medications: Allopurinol (Allopurinol) 300 Mg Tab 300 MG PO DAILY for Gout, #30 TAB 0 Refills Atorvastatin (Lipitor) 10 Mg Tab 10 MG PO HS for Cholesterol Management, #30 TAB 0 Refills Diltiazem ER 24 HR (Diltiazem ER 24 HR) 240 Mg [place] 240 MG PO DAILY, #30 TAB 0 Refills Doxazosin (Doxazosin) 2 Mg Tab 2 MG PO DAILY, #30 TAB 0 Refills Hydralazine HCl (Hydralazine HCl) 50 Mg Tablet 50 MG PO BID for Blood Pressure Management Levothyroxine (Synthroid) 50 Mcg Tab 50 MCG PO DAILY for Thyroid, #30 TAB 0 Refills Metoprolol Succinate ER 24 HR (Metoprolol Succinate ER 24 HR) 100 Mg Tab 100 MG PO BID, #30 TAB 0 Refills Mauricio Ahn MD Mar 08, 2017 13:26 Tan Ennis MD Mar 09, 2017 16:08
[2017-03-08 13:32] VITALS: BP 178/102
[2017-03-08 16:00] VITALS: BP 168/86; PULSE 77; RESP 18; TEMP 97.1; O2SAT 96
[2017-03-08] MEDS: AZITHROMYCIN INJ 500 MG in SODIUM CHLOR 0.9% 250 ML INJ 250 ML IV SCH (18:29)
[2017-03-08 20:00] VITALS: BP 178/84; PULSE 67; RESP 20; TEMP 97.8; O2SAT 97
[2017-03-08] MEDS: ATORVASTATIN 10 MG TAB PO SCH (20:30)
[2017-03-08] MEDS: TEMAZEPAM 15 MG CAP PO PRN (22:49)
[2017-03-09] VITALS: BP 146/79; PULSE 61; RESP 18; TEMP 97.4; O2SAT 97
[2017-03-09] MEDS: LEVOTHYROXINE SODIUM 50 MCG TAB PO SCH (04:52)
[2017-03-09] MEDS: IMIPENEM/CILASTATIN INJ 250 MG in SODIUM CHLORIDE 0.9% INJ 100 ML IV SCH (04:52)
[2017-03-09 08:00] VITALS: BP 186/95; PULSE 72; RESP 19; TEMP 96; O2SAT 97
[2017-03-09] MEDS: METOPROLOL SUCCINATE 50 MG EXTENDED RELEASE TAB PO SCH (08:34)
[2017-03-09] MEDS: DILTIAZEM-CD 240 MG CAP ER PO SCH (08:34)
[2017-03-09] MEDS: hydrALAZINE HCL 50 MG TAB PO SCH (08:34)
[2017-03-09] MEDS: SODIUM CHLORIDE 0.9% FLUSH 10 ML FLUSH IV FLUSH SCH (08:35)
[2017-03-09] MEDS: ALLOPURINOL 100 MG TAB PO SCH (08:35)
[2017-03-09] MEDS: DOXAZOSIN MESYLATE 2 MG TAB PO SCH (08:35)
[2017-03-09] MEDS ORDERED: ceFOXitin INJ 2 GM in SODIUM CHLORIDE 0.9% INJ 100 ML IV SCH (09:15)
[2017-03-09] MEDS ORDERED: AMIKACIN INJ 500 MG in SODIUM CHLORIDE 0.9% INJ 100 ML IV SCH (09:15)
--- NOTE | 2017-03-09 10:29 | HHI.NPPN ---
Subjective Renal Failure: Chronic, Acute, End Stage Renal Disease Interval History Seen during dialysis. He is requesting discharge. (Jeaneth Roth) Objective Data Data Vital Signs Date Time Temp Pulse Resp B/P (MAP) Pulse Ox O2 Delivery O2 Flow Rate FiO2 03/09/17 08:00 96.0 72 19 186/95 (125) 97 03/09/17 00:00 97.4 61 18 146/79 (101) 97 03/08/17 20:00 97.8 67 20 178/84 (115) 97 03/08/17 16:00 97.1 77 18 168/86 (113) 96 03/08/17 13:32 178/102 (127) Automatic Cuff 03/08/17 12:00 97.3 74 19 193/94 (127) 96 (Jeaneth Roth) -: 03/08/17 0530 03/08/17 0530 Tubes & Lines: Perma-Cath (Jeaneth Roth) Physical Exam General Appearance: Well Developed, Well Nourished, No Acute Distress (Jeaneth Roth) Eyes Eye Exam: Pupils Equal (Jeaneth Roth) Throat Throat Exam: Oral Mucosa [place] & Moist (Jeaneth Roth) Neck Neck Exam: Neck Supple (Jeaneth Roth) Pulmonary Resp Exam: Clear Bilaterally, Breath Sounds Equal (Jeaneth Roth) Cardiology CV Exam: Regular, Normal Sinus Rhythm (Jeaneth Roht) Gastrointestinal/Abdomen GI Exam: Soft, Non-Tender, Bowel Sounds Present (Jeaneth Roth) Musculoskeletal MS Exam: Normal Tone, Good Strength (Jeaneth Roth) Integumentary Skin Exam: Clear, Warm, Dry, Intact (Jeaneth Roth) Extremeties Extremities Exam: No Edema, Pedal Pulses Palpable Extremeties Remarks left arm hemiplegia (Jeaneth Roth) Neurologic Neuro Exam: Alert, Awake, Oriented (Jeaneth Roth) Assessment/Plan Discussed Condition With: Patient Assessment Summary: Anemia of CKD, End Stage Renal Disease Problem List: (1) Peritoneal dialysis catheter infection ICD Codes: T85.71XA - Infection and inflammatory reaction due to peritoneal dialysis catheter, initial encounter Plan: PD catheter removed, cultures reviewed Initial positive AFB from last Wednesday outpatient, repeat also positive ID consulted, managing outpatient antibiotics Cefoxitin 2 g with HD; also oral Levaquin and Azithromycin to see Dr. Osuna outpatient as Dr. Mayer does not have an outpatient clinic Converted to HD as below CM assisting with outpatient Rx orders (2) ESRD (end stage renal disease) on dialysis ICD Codes: N18.6 - End stage renal disease; Z99.2 - Dependence on renal dialysis Plan: Tunneled HD catheter placed Wednesday Seen during dialysis today on a 3K, 350 BFR, goal 2L Continue HD TTS, Outpatient arrangements for [facility] are complete; chair time is 2: 45 avoid gadolinium; renally does antibiotics if appropriate (3) HTN (hypertension) ICD Codes: I10 - Essential (primary) hypertension Plan: Continue present medications (4) Bone metabolism disorder ICD Codes: E88.9 - Metabolic disorder, unspecified; M90.80 - Osteopathy in diseases classified elsewhere, unspecified site Plan: phosphorus level is acceptable monitor (5) Atrial fibrillation ICD Codes: I48.91 - Unspecified atrial fibrillation Plan: On Cardizem Rate is controlled (Jeaneth Roth) Problem List: (1) Peritoneal dialysis catheter infection ICD Codes: T85.71XA - Infection and inflammatory reaction due to peritoneal dialysis catheter, initial encounter Plan: PD catheter removed, cultures reviewed Initial positive AFB from last Wednesday outpatient, repeat also positive ID consulted, managing outpatient antibiotics Cefoxitin 2 g with HD; also oral Levaquin and Azithromycin to see Dr. Osuna outpatient as Dr. Mayer does not have an outpatient clinic Converted to HD as below CM assisting with outpatient Rx orders (2) ESRD (end stage renal disease) on dialysis ICD Codes: N18.6 - End stage renal disease; Z99.2 - Dependence on renal dialysis Plan: Tunneled HD catheter placed Wednesday Seen during dialysis today on a 3K, 350 BFR, goal 2L Continue HD TTS, Outpatient arrangements for [facility] are complete; chair time is 2: 45 avoid gadolinium; renally does antibiotics if appropriate (3) HTN (hypertension) ICD Codes: I10 - Essential (primary) hypertension Plan: Continue present medications (4) Bone metabolism disorder ICD Codes: E88.9 - Metabolic disorder, unspecified; M90.80 - Osteopathy in diseases classified elsewhere, unspecified site Plan: phosphorus level is acceptable monitor (5) Atrial fibrillation ICD Codes: I48.91 - Unspecified atrial fibrillation Plan: On Cardizem Rate is controlled Plan patient was seen and examined. Outpatient antibiotics: Cefoxitin 2 gm IV with each HD, oral Levaquin 500 mg Q48 hours and Zithromax 500 mg PO daily until AFB is identified and sensitivity results are available. These are instructions from Dr. Mayer. (Deangelo Dsouza MD) Problem Qualifiers (1) Peritoneal dialysis catheter infection: Qualified Codes: T85.71XA - Infection and inflammatory reaction due to peritoneal dialysis catheter, initial encounter Jeaneth Roth Mar 09, 2017 10:29 Deangelo Dsouza MD Mar 09, 2017 20:56
[2017-03-09] MEDS ORDERED: AMIKACIN INJ 500 MG in SODIUM CHLORIDE 0.9% INJ 100 ML IV PRN (10:30)
[2017-03-09] MEDS: HEPARIN SODIUM - IV 10,000 UNITS/10 ML VIAL PRN (11:02)
[2017-03-09] MEDS: AZITHROMYCIN INJ 500 MG in SODIUM CHLOR 0.9% 250 ML INJ 250 ML IV SCH (13:13)
--- NOTE | 2017-03-09 14:06 | HHI.FF ---
Infusion Therapy Location of Infusion Therapy: Dialysis Center Patient Information Patient Weight 100 kg Diagnosis: Diagnosis mycobacterial infection Coded Allergies: No Known Allergies (Verified , 03/05/17) Administer Medication q 48 hours w/Hemodialysis ,Th,Sat Cefoxitine 1 gm after each dyalisis Start Treatment: Mar 11, 2017 Stop Treatment: Apr 10, 2017 Additional Information Venous access: Other (dialysis catheter) Additional Instructions [x] Peripheral flush and dressing changes per protocol [x] Implanted port and central track liner operator: * Implanted port: 10 ml Normal Saline followed by 5 ml Heparin 100 units/ml Heparin flush after each use and monthly to maintain. [] May leave port accessed during therapy. [] May leave peripheral site accessed for duration of therapy. [x] If patient has SOB or respiratory distress, check oxygen saturation. If less than 90% or clinical signs of respiratory distress, administer oxygen at 2 L/min. via nasal cannula and notify physician. [x] Anaphylaxis/Reaction orders: * Stop infusion. * Keep IV line open with saline flush. * Notify physician. * Monitor vital signs every 15 minutes until symptoms resolve. * Check Oxygen saturation; Oxygen at 2 L/min. via nasal cannula if less than 90% or clinical signs of respiratory distress. * Administer diphenhydramine (Benadryl) 25 mg IV STAT, (unless patient has received as pre-med). May repeat once, if necessary. * Solu-Cortef 250 mg IVP over 30-60 seconds, use 100 mg vials for each dissolution. * Epinephrine (1mg/1 ml) 0.3 mg subcutaneously or IVP now with any signs of respiratory distress. * Check with physician for new additional pre-med orders if patient is re- challenged or re-treated. [x] May remove PICC line when treatment complete, after confirming with Physician. [x] If the patient is admitted to the hospital, the ED, or transferred via [facility] , complete transfer form including medication reconciliation order sheet. Laboratory Tests Weekly Labs: CBC w/diff Veronica Mayer MD Mar 09, 2017 14:06
[2017-03-09] MEDS ORDERED: [UNRECOGNIZED DRUG - CODE] IV (14:11)
[2017-03-09 16:00] VITALS: BP 139/77; PULSE 78; RESP 17; TEMP 96.6; O2SAT 97
[2017-03-09] MEDS ORDERED: IMIPENEM/CILASTATIN INJ 250 MG in SODIUM CHLORIDE 0.9% INJ 100 ML IV SCH (16:00)
--- NOTE | 2017-03-09 16:00 | HHI.IDPN ---
Subjective Subjective Remarks pt is doing good sp removal of PD cath clx + for AFB , rapid growrer Antibiotics primaxin levaquin azithro amikacin Allergies: Coded Allergies: No Known Allergies (Verified , 03/05/17) Objective . Vital Signs Date Time Temp Pulse Resp B/P (MAP) Pulse Ox O2 Delivery O2 Flow Rate FiO2 03/09/17 08:00 96.0 72 19 186/95 (125) 97 03/09/17 00:00 97.4 61 18 146/79 (101) 97 03/08/17 20:00 97.8 67 20 178/84 (115) 97 03/08/17 16:00 97.1 77 18 168/86 (113) 96 03/09/17 03/09/17 03/10/17 15:00 23:00 07:00 Intake Total 100 ml Output Total 1700 ml Balance -1600 ml IV Total 100 ml Hemodialysis 1700 ml . Laboratory Tests Test 03/08/17 05:30 White Blood Count 6.3 TH/MM3 Red Blood Count 3.72 MIL/MM3 Hemoglobin 12.0 GM/DL Hematocrit 35.3 % Mean Corpuscular Volume 94.8 FL Mean Corpuscular Hemoglobin 32.2 PG Mean Corpuscular Hemoglobin Concent 34.0 % Red Cell Distribution Width 14.8 % Platelet Count 143 TH/MM3 Mean Platelet Volume 9.0 FL Neutrophils (%) (Auto) 76.0 % Lymphocytes (%) (Auto) 9.8 % Monocytes (%) (Auto) 11.3 % Eosinophils (%) (Auto) 2.2 % Basophils (%) (Auto) 0.7 % Neutrophils # (Auto) 4.8 TH/MM3 Lymphocytes # (Auto) 0.6 TH/MM3 Monocytes # (Auto) 0.7 TH/MM3 Eosinophils # (Auto) 0.1 TH/MM3 Basophils # (Auto) 0.0 TH/MM3 CBC Comment DIFF FINAL Differential Comment Laboratory Tests Test 03/08/17 05:30 Blood Urea Nitrogen 56 MG/DL Creatinine 6.39 MG/DL Random Glucose 107 MG/DL Calcium Level 7.6 MG/DL Sodium Level 139 MEQ/L Potassium Level 4.1 MEQ/L Chloride Level 104 MEQ/L Carbon Dioxide Level 26.1 MEQ/L Anion Gap 9 MEQ/L Estimat Glomerular Filtration Rate 9 ML/MIN Imaging Last Impressions Chest X-Ray 03/05/17 1026 Signed Impressions: Service Date/Time: Sunday, March 05, 2017 10:50 - CONCLUSION: 1. No acute cardiopulmonary disease. Jc Moyer MD Catheter Placement X-Ray 03/05/17 0000 Signed Impressions: Service Date/Time: Sunday, March 05, 2017 00:00 - CONCLUSION: Uncomplicated PermaCath placement as above. Judd Lizarraga MD Physical Exam CONSTITUTIONAL/GENERAL: This is an adequately nourished patient, in no apparent distress. TUBES/LINES/DRAINS: R chest Permacath in place - site OK SKIN: No jaundice, rashes, or lesions. Skin temperature appropriate. Not diaphoretic. RESPIRATORY/CHEST: unlabored respirations. GASTROINTESTINAL: Abdomen soft, non-tender, nondistended. No hepato-splenomegaly , or palpable masses. No guarding. Bowel sounds present. prevvious PD cath site OK, dressin gin place with small amount of serosang dc previous abscess site OK, dressin gin place with small amount of serosang dc MUSCULOSKELETAL: Extremities without clubbing, cyanosis, or edema. No joint tenderness or effusion noted. No calf tenderness. No mottling or clubbing. NEUROLOGICAL: Awake and alert. Motor RUE/RLE normal limits. L side hemiplagia Follows commands. Slightly disarthric. L facial droop.. Assessment & Plan Remarks PD cath AFB infx, rapid grower ID P OK to dc home on IV cefoxitine with HD Levaquin, Azithro pt tx duration is 3-4 months with final abx adjustement once ID and S of the AFB org is availbale He need to be follwoed by ID will refer to Toni Wang case mngr Veronica Mayer MD Mar 09, 2017 16:00
[2017-03-09] MEDS ORDERED: LEVA500T20 PO (16:02)
[2017-03-09] MEDS ORDERED: AZIT500T2 PO (16:02)
[2017-03-09] MEDS: LEVOFLOXACIN 500 MG PREMIX INJ 100 ML IV SCH (16:33)
== END 2017-03-09 17:41 | disposition home health service (06) | DRG 981 ==
LOC: NEPC 08:44 → NEDA 13:37 → N07A 15:23
PROVIDERS: ADMIT Hospitalist; ATTEND Hospitalist
PROC: 05HM33Z Insertion of Infusion Device into Right Internal Jugular Vein, Percutaneous Approach (ICD-10-PCS; 2017-03-05)
PROC: 5A1D70Z Performance of Urinary Filtration, Intermittent, Less than 6 Hours Per Day (ICD-10-PCS; 2017-03-06)
PROC: 0WPG03Z Removal of Infusion Device from Peritoneal Cavity, Open Approach (ICD-10-PCS; principal; 2017-03-06 14:16)
DX: T85.71XA Infection and inflammatory reaction due to peritoneal dialysis catheter, initial encounter (principal); N18.6 End stage renal disease; I69.354 Hemiplegia and hemiparesis following cerebral infarction affecting left non-dominant side; I12.0 Hypertensive chronic kidney disease with stage 5 chronic kidney disease or end stage renal disease; I48.91 Unspecified atrial fibrillation; L02.211 Cutaneous abscess of abdominal wall; N25.0 Renal osteodystrophy; E03.9 Hypothyroidism, unspecified; M19.90 Unspecified osteoarthritis, unspecified site; I25.10 Atherosclerotic heart disease of native coronary artery without angina pectoris; E78.5 Hyperlipidemia, unspecified; D63.1 Anemia in chronic kidney disease; Y83.8 Other surgical procedures as the cause of abnormal reaction of the patient, or of later complication, without mention of misadventure at the time of the procedure; M10.9 Gout, unspecified; Z95.0 Presence of cardiac pacemaker; Z99.2 Dependence on renal dialysis
CPT/HCPCS: 36558; 71010; 76937; 77001; 80048; 80053; 80074; 83735; 84100; 84443; 85025; 85610; 85730; 87015; 87040; 87070; 87102; 87116; 87205; 87206; 90935; 93005; 96374; 96375; 99152; C1750; C1769; J0278; J0456; J0690; J0694; J0743; J1580; J1644; J1956; J2250; J2270; J2370; J2405; J3010; J3370; J7050

== ENCOUNTER 2017-03-29 13:00 | Day surgery (SDC) | payer MEDICARE ==
[~2017-03-29 13:00] MED LIST changes: -AMIO200T PO; +AZIT500T2 PO; -DILT0.05 PO; +DILT1TAB4 PO; -FISH100020; +HYDR-3580 PO; +HYDR-3800 PO; -HYDR-3801 PO; +LEVA500T20 PO; +[UNRECOGNIZED DRUG - CODE] IV
[2017-03-29 13:23] VITALS: BP 173/93; PULSE 75; RESP 16; TEMP 97.9; O2SAT 96
--- NOTE | 2017-03-29 14:22 | PD.RAD ---
Radiology Post PICC Prog Note Pre Procedure Diagnosis: (1) Peritoneal dialysis catheter infection Post Procedure Diagnosis: (1) Peritoneal dialysis catheter infection Procedure: Right PICC line placement Procedure Date: Mar 29, 2017 Supervising Radiologist Jose Luis Caraballo JR Proceduralist/Assist: Florecita Vang RT(R)() Device Side: Right [place]: 4 single lumen cm: 39 Plan of Activity Patient to Unit: ROPU Patient Condition: Good PICC line can be used immediately Jr. Ilya,Jose Luis Richard MD Mar 29, 2017 14:22
[2017-03-29] MEDS ORDERED: SODIUM CHLORIDE 0.9% FLUSH 10 ML FLUSH IVF PRN ×2 (14:30)
--- NOTE | 2017-03-29 15:06 | RADRPT ---
EXAM DATE/TIME: 03/29/2017 13:57 [place] COMPARISON: No previous studies available for comparison. INDICATIONS : Patient presents with abdominal abscess in need of PICC placement for antibiotics. MEDICAL HISTORY : Hypothyroid CVA Afib HTN GERD Arthritis BPH SURGICAL HISTORY : Tonsillectomy Pacemaker Christelle PD Cath Permcath ENCOUNTER: Initial ACUITY: 3 months PAIN SCORE: 0/10 FLUORO TIME: 0.5 minutes IMAGE SERIES: 0 ACCESS: Right brachial vein DEVICE(S): 1.) 4 [place] single lumen 39 cm Xcela Power PICC PROCEDURE : 1. Ultrasound guidance for venous catheterization. 2. Fluoroscopic guidance. 3. Ultrasound & fluoroscopic guided central venous Power PICC line placement. The risks, benefits and alternatives to the procedure were explained and verbal and written consent w as obtained. The site was prepped in sterile fashion. Full sterile technique was used, including ca p, mask, sterile gloves and gown and a large sterile sheet. Hand hygiene and 2% chlorhexidine prep w as utilized per protocol for cutaneous antisepsis with appropriate dry time for site. Sterile gel a nd sterile probe cover were utilized for ultrasound guidance. The skin and subcutaneous tissues wer e infiltrated with local anesthetic solution. Under direct ultrasound guidance, a suitable vein was accessed and a measuring guidewire was introduc ed and positioned in the central venous system. The ultrasound images depicting access guidance were saved and stored to PACS for permanent record. A Power Injectable PICC line was cut to prescribed length and introduced, positioned with tip at the cavoatrial junction level. The line was flushed and secured per protocol. CONCLUSION: 1. Uncomplicated central venous Power PICC line placement. 2. The PICC line can be used immediately. Jose Luis Caraballo Jr., MD on March 29, 2017 at 15:02 Board Certified Radiologist. This report was verified electronically.
[2017-03-30] MEDS ORDERED: SODIUM CHLORIDE 0.9% FLUSH 10 ML FLUSH IVF SCH (09:00)
== END 2017-03-29 14:33 | disposition home or self-care (01) ==
LOC: HROP 13:00 → HRIP 13:01 → HROP 14:33
PROVIDERS: ATTEND Internal Medicine Nephrology
DX: T85.71XA Infection and inflammatory reaction due to peritoneal dialysis catheter, initial encounter (principal); N18.6 End stage renal disease; I12.0 Hypertensive chronic kidney disease with stage 5 chronic kidney disease or end stage renal disease; L02.211 Cutaneous abscess of abdominal wall; I48.91 Unspecified atrial fibrillation; Z86.73 Personal history of transient ischemic attack (TIA), and cerebral infarction without residual deficits; Z99.2 Dependence on renal dialysis
CPT/HCPCS: 36556; 76937; 77001; C1751; J1642